=== PATIENT | male | born 1975 | race Caucasian/White ===

== ENCOUNTER 2024-06-25 15:06 | Emergency (ER) | payer MEDICAID, SELFPAY ==
--- NOTE | ~2024-06-25 | XR_ITS ---
EXAMINATION: XR FOREARM, RIGHT, 2 views CLINICAL INFORMATION: Small bump on forearm, swelling, redness, question osteomyelitis COMPARISON: None available. TECHNIQUE: AP and lateral views of the right forearm were obtained. FINDINGS: No evidence of acute fracture or malalignment. Ulnotrochlear osteophytes. Visualized elbow and wrist joint spaces are otherwise well preserved. No osseous cortical erosion, focal osteopenia, or periosteal reaction. Focal soft tissue swelling overlying the distal radial sided forearm XR/XR forearm RT 2V IMPRESSION: Focal distal forearm soft tissue swelling, without underlying osseous erosion or periosteal reaction to suggest osteomyelitis. Electronically signed by: Erwin David MD 06/25/2024 03:57 PM EDT
[2024-06-25 15:12] VITALS: BP 104/75; PULSE 80; RESP 19; TEMP 37.2; O2SAT 98; BMI 24.3
--- NOTE | 2024-06-25 15:13 | ED.GENADULT ---
HPI - General Adult General Chief complaint: Wound/Laceration Stated complaint: RT arm abscess Time Seen by Provider: 06/25/24 18:02 Source: patient, RN notes reviewed and old records reviewed Mode of arrival: ambulatory Limitations: no limitations History of Present Illness ED Provider: Adriana ARIAS narrative: 49-year-old male past medical history significant for diabetes presents for evaluation of an abscess to his right forearm. Patient reports that the abscess has been there for about 1 week. He was applying peroxide to it and soaking in warm water to attempt to treat at home himself He denies any fevers, chills. He admits to injecting substances into the right arm prior to the onset of this abscess He reports that it initially started as a small boil but has been growing and getting more red and painful His overall discomfort is 7/10 No other complaints or concerns at this time Related Data Previous Rx's ?Medication ?Instructions ?Recorded cephalexin 500 mg capsule 500 mg PO QID #40 caps 06/25/24 doxycycline hyclate 100 mg tablet 100 mg PO BID #20 tabs 06/25/24 Allergies Allergy/AdvReac Type Severity Reaction Status Date / Time cyclobenzaprine Allergy Unknown HIVES Verified 06/25/24 15:14 [From FLEXERIL] Review of Systems Constitutional: Constitutional: Denies body ache(s), Denies chills and Denies fever(s) ENT: Denies sore throat Cardiovascular: Cardiovascular: Denies chest pain and Denies dyspnea Respiratory: Respiratory: Denies cough and Denies dyspnea Gastrointestinal: Gastrointestinal: Denies abdominal pain, Denies nausea and Denies vomiting Musculoskeletal: Musculoskeletal: Denies arthralgias, Denies joint swelling and Denies limited range of motion Integumentary/Breasts: Skin/Breast: Reports erythema, Reports rash, Reports skin swelling and Reports sores PMFSH Social History Social History Smoked in Last 30 Days: Yes Use of substances other than those prescribed or required for medical reasons: Yes Advance Directives: No Advance Directives Information Provided: No Physical Exam ED Vital Signs: Vital Signs - 24 hr 06/25/24 15:12 06/25/24 18:00 06/25/24 19:06 Temperature 98.9 F 98.3 F 98.6 F Pulse Rate 80 65 81 Respiratory Rate 19 18 19 Blood Pressure 104/75 106/57 L 108/76 Pulse Oximetry 98 95 98 Oxygen Delivery Method Room Air Room Air 06/25/24 20:45 Temperature 98.0 F Pulse Rate 89 Respiratory Rate 16 Blood Pressure 106/81 Pulse Oximetry 97 Oxygen Delivery Method Room Air BMI result Body Mass Index 24.3 Const General: healthy appearing, comfortable, no acute distress, alert and awake Nutritional Appearance: well nourished Orientation/consciousness: patient oriented x3 HENMT Head: Yes normocephalic and Yes atraumatic Eyes Eyelids: Yes eyelids normal Conjunctivae: conjunctivae normal Sclerae: sclerae normal Corneas: corneas normal Pupils: Equal, round and reactive pupils present EOM: EOMs intact bilaterally Neck Neck: Yes full ROM Resp Effort & Inspection: normal respiratory effort, able to speak in complete sentences and not labored Skin Other: There is a large, approximately 8 cm area of erythema to the dorsal surface of the right forearm. There is a central about 4 cm area of fluctuance with tenderness to palpation. No active drainage at this time. No streaking lymphadenopathy. There is no involvement of the wrist or elbow General skin exam: elasticity normal Neuro General: patient oriented x3 Cranial nerves: Yes Equal, round and reactive pupils present and Yes Bilaterally intact EOM present Cognition (Neuro): normal cognition Extrem Other: Moving all extremities well without any obvious deformities Course Course Course Narrative: RME performed by Jovana Quiroz PA-C. Patient is a 49 year old assigned male at presenting to the emergency department with a right forearm abscess. Patient states over the last week he has had an abscess on his right forearm that has gotten significantly worse. Patient states he does have a history of IVDU. Detailed physical exam and review of systems are deferred to the primary mill roller. Labs and imaging ordered. Patient placed back in the waiting room pending room availability and results. Reevaluation(s) Reevaluation #1: Glucose down to 250, the patient is stable for discharge at this time Time: 21:44 Medications Administered Discontinued Medications Generic Name Dose Route Start Last Admin Trade Name Freq PRN Reason Stop Dose Admin Cephalexin HCl 500 mg 06/25/24 19:16 06/25/24 19:33 Cephalexin 500 Mg Capsule PO 06/25/24 19:17 500 mg ONCE ONE Administration Doxycycline Monohydrate 100 mg 06/25/24 19:16 06/25/24 19:33 Doxycycline Monohydrate 100 Mg Capsule PO 06/25/24 19:17 100 mg ONCE ONE Administration Sodium Chloride 1,000 mls @ 999 mls/hr 06/25/24 18:30 06/25/24 20:52 Ns IV 06/25/24 19:30 999 mls/hr .Q1H1M AYAN Administration Insulin Human Regular 5 unit 06/25/24 18:28 06/25/24 20:56 Insulin Regular, Human 100 Unit/Ml 10 Ml Vial IVPUSH 06/25/24 18:29 5 unit ONCE ONE Administration Lidocaine/Epinephrine 10 ml 06/25/24 18:29 06/25/24 21:03 Lidocaine Hcl 1%/Epi 1:100,000 10 Ml Vial INFILTRATI 06/25/24 18:30 10 ml ONCE ONE Administration Oxycodone HCl 10 mg 06/25/24 18:28 06/25/24 19:33 Oxycodone Hcl Immed Release 5 Mg Tablet PO 06/25/24 18:29 10 mg ONCE ONE Administration Procedures Abscess I/D Site: upper extremity (Right dorsal forearm) Side (if applicable): right Local Anesthetic: lidocaine 1% and bupivacaine 0.5% Amount of anesthesia used (mL): 10 Technique: incised with blade Amount of fluid expressed (mL): 20 Sent for culture/gram staining?: No Irrigation: Yes Packing used?: none Medical Decision Making Medical Decision Making [facility] Narrative: 49-year-old male presents for evaluation of abscess to his right forearm. The patient admits to injecting opiates, x-ray shows no evidence of foreign body, osteomyelitis or gas producing organisms. See procedure note for abscess drainage. Incision and drainage was performed by Radha Carmona under my direct supervision The patient is also hyperglycemic but there was no evidence of DKA, his anion gap is normal, his carbon dioxide level was normal. We will treat with IV fluids, insulin for this. The patient be discharged with cephalexin and doxycycline, he is not septic and does not require admission. Differential Diagnosis Differential Diagnoses: The differential diagnosis associated with the presentation includes Abscess Cellulitis Substance abuse Hyperglycemia DKA Admission/Observation Consideration of admission/observation: Escalation of care including admission/observation considered Consider admission due to cellulitis with abscess in addition to hyperglycemia Lab Data [facility] Lab Attestation statement: I reviewed the patient's lab results. Patient has no leukocytosis, no anemia. Normal platelet count. No significant electrolyte abnormalities. Glucose is elevated to 471 06/25/24 15:31 06/25/24 15:31 Labs: Lab Results 06/25/24 06/25/24 06/25/24 Range/Units 15:31 15:38 21:37 WBC 10.2 (4.8-10.8) X10*3/uL RBC 4.84 (4.60-5.80) X10*6/uL Hgb 14.6 (14.0-18.0) g/dl Hct 42.1 (42.0-52.0) % MCV 87.0 (80.0-98.0) fL MCH 30.2 (27.0-33.0) pg MCHC 34.7 (31.0-36.0) g/dl RDW 12.6 (11.0-16.0) % Plt Count 227 (160-400) X10*3/uL MPV 9.6 (9.4-12.4) fL Immature Gran % (Auto) 0.4 (0.0-0.4) % Neut % (Auto) 74.9 H (45-73) % Lymph % (Auto) 16.0 L (20-40) % [place] % (Auto) 8.0 (2-11) % Eos % (Auto) 0.3 (0-4) % Baso % (Auto) 0.4 (0-2) % Lymph # (Auto) 1.6 (1.2-4.9) X10*3/uL [place] # (Auto) 0.8 (0.1-1.2) X10*3/uL Eos # (Auto) 0.0 (0.0-0.4) X10*3/uL Baso # (Auto) 0.0 (0.0-0.2) X10*3/uL Abs Immat Gran (auto) 0.04 H (0.00-0.03) X10*3/uL Absolute Neuts (auto) 7.7 (2.0-8.3) x10*3/uL Absolute Nucleated RBC 0.000 (0.0-0.012) X10*3/uL Nucleated RBC % (auto) 0.0 (0.0-0.2) /100WBC ESR 16 H (0-15) MM/HR Sodium 135 (135-145) mmol/L Potassium 4.5 (3.3-5.1) mmol/L Chloride 102 (96-108) mmol/L Carbon Dioxide 24 (22-29) mmol/L Anion Gap 14 (12-20) BUN 6 L (9-16) mg/dL Creatinine 0.86 (0.5-1.4) mg/dL Estim Creat Clear Calc 102.7 Estimated GFR > 60 POC Glucose 250 H (60-115) mg/dL Random Glucose 471 H* (60-115) mg/dL Estimat Average Glucose 289 mg/dL Hemoglobin A1c % 11.7 H (<6.0) % Calcium 9.1 (8.4-10.2) mg/dL Total Bilirubin 0.4 (0.0-1.0) mg/dL AST 23 (5-37) U/L ALT 30 (0-40) U/L Alkaline Phosphatase 67 (39-117) U/L C-Reactive Protein 2.35 H (< or = 0.50) mg/dL Total Protein 7.5 (6.5-8.0) g/dL Albumin 3.6 (3.5-5.0) g/dL Beta-Hydroxybutyrate 0.09 (0.02-0.27) mmol/L Radiology Impression Discussion of test interpretation with radiology: I have reviewed the radiologist's reading. Radiologist Impression: XR/XR forearm RT 2V IMPRESSION: Focal distal forearm soft tissue swelling, without underlying osseous erosion or periosteal reaction to suggest osteomyelitis. Discharge Plan Discharge Clinical Impression: Abscess, Acute hyperglycemia Patient Disposition: Home, Self-Care Instructions: Diabetic Hyperglycemia (ED), Incision and Drainage (ED) Additional Instructions: You should continue warm compresses every 4 hours. Take both antibiotics as prescribed for the next 10 days Keep the area clean and dry Return for new or worsening symptoms, especially fever Your glucose was elevated to 471 today. Follow-up with your primary doctor regarding your high blood sugar Prescriptions: New cephalexin 500 mg capsule 500 mg PO QID Qty: 40 0RF doxycycline hyclate 100 mg tablet 100 mg PO BID Qty: 20 0RF Print Language: Armenian
[2024-06-25 15:37] LABS: MANUAL DIFF FLAG NO
[2024-06-25 15:39] LABS: Basophils Percent Auto 0.4 % (0-2); Eosinophils Percent Auto 0.3 % (0-4); Hematocrit 42.1 % (42.0-52.0); Hemoglobin 14.6 g/dl (14.0-18.0); Imm Gran Abs Auto 0.04 X10*3/uL (0.00-0.03); Imm Gran Pct Auto 0.4 % (0.0-0.4); Lymphocytes Absolute Auto 1.6 X10*3/uL (1.2-4.9); Mean Corpuscular HGB Conc 34.7 g/dl (31.0-36.0); Mean Corpuscular Hemoglobin 30.2 pg (27.0-33.0); Mean Platelet Volume 9.6 fL (9.4-12.4); Monocytes Absolute Auto 0.8 X10*3/uL (0.1-1.2); Neutrophils Absolute Auto 7.7 x10*3/uL (2.0-8.3); Neutrophils Percent Auto 74.9 % (45-73); Platelet Count 227 X10*3/uL (160-400); Red Blood Count 4.84 X10*6/uL (4.60-5.80); Red Cell Distribution Width 12.6 % (11.0-16.0); White Blood Count 10.2 X10*3/uL (4.8-10.8)
[2024-06-25 16:05] LABS: Alanine Aminotransferase 30 U/L (0-40); Albumin Level 3.6 g/dL (3.5-5.0); Alkaline Phosphatase 67 U/L (39-117); Anion Gap 14 (12-20); Aspartate Amino Transferase 23 U/L (5-37); Bilirubin Total 0.4 mg/dL (0.0-1.0); Blood Urea Nitrogen 6 mg/dL (9-16); C Reactive Protein 2.35 mg/dL (< or = 0.50); Calcium 9.1 mg/dL (8.4-10.2); Carbon Dioxide 24 mmol/L (22-29); Chloride 102 mmol/L (96-108); Creatinine Clr Calc Pharmacy 102.7; Estimated Glomerular Filt Rate > 60; Glucose Random 471 mg/dL (60-115); Potassium 4.5 mmol/L (3.3-5.1); Sodium 135 mmol/L (135-145); Total Protein 7.5 g/dL (6.5-8.0)
[2024-06-25 16:43] LABS: Erythrocyte Sedimentation Rate 16 MM/HR (0-15)
[2024-06-25 17:17] LABS: Beta-Hydroxybutyrate 0.09 mmol/L (0.02-0.27)
[2024-06-25 17:23] LABS: Estimated Average Glucose 289 mg/dL; Hemoglobin A1c % 11.7 % (<6.0)
[2024-06-25 18:00] VITALS: BP 106/57; PULSE 65; RESP 18; TEMP 36.8; O2SAT 95
[2024-06-25 19:06] VITALS: BP 108/76; PULSE 81; RESP 19; TEMP 37; O2SAT 98
[2024-06-25] MEDS: Doxycycline Monohydrate 100 MG CAPSULE PO (19:33)
[2024-06-25] MEDS: oxyCODONE HCl Immed Release 5 MG TABLET 10 MG PO (19:33)
[2024-06-25] MEDS: cephALEXin 500 MG CAPSULE PO (19:33)
--- NOTE | 2024-06-25 20:44 | PC.NURSE ---
pt previously a difficult stick with limited/poor acccess availability. RN was awaiting ICU assistance with placing and US guided IV. CUSTOM PROTECTION OFFICER just informed RN of successful IV Placement. IV medication to be administered
[2024-06-25 20:45] VITALS: BP 106/81; PULSE 89; RESP 16; TEMP 36.7; O2SAT 97
[2024-06-25] MEDS: 0.9 % Sodium Chloride 1,000 ML 999 ML IV (20:52)
[2024-06-25] MEDS: Insulin Regular, Human 100 UNIT/ML 10 ML VIAL IVPUSH (20:56)
[2024-06-25] MEDS: Lidocaine HCl 1%/Epi 1:100,000 10 ML VIAL INFILTRATI (21:03)
[2024-06-25 21:43] LABS: Glucose, Whole Blood 250 mg/dL (60-115)
[2024-06-26 00:02] VITALS: BP 110/58; PULSE 89; RESP 16; TEMP 36.9; O2SAT 97
== END 2024-06-25 22:22 | disposition home or self-care (01) ==
PROVIDERS: Physician Assistant Medical; Emergency Provider Emergency Medicine
DX: L02.413 Cutaneous abscess of right upper limb (principal); R73.9 Hyperglycemia, unspecified; Z79.899 Other long term (current) drug therapy
CPT/HCPCS: 10060; 36415; 73090; 80053; 82010; 82947; 83036; 85025; 85652; 86140; 96361; 96374; 99284

== ENCOUNTER 2025-07-14 21:09 | Inpatient (IN) | payer MEDICAID, SELFPAY ==
--- NOTE | ~2025-07-14 | CT_ITS ---
CLINICAL HISTORY: osteo? CT right femur with Comparison: None provided Findings: No acute fractures, erosions or aggressive periosteal reactions. No significant degenerative changes Diffuse subcutaneous edema along the mid and distal thigh. Small anterior subcutaneous ill-defined abscess measuring 1.1 x 7.9 cm on sagittal series 16, image 97. Possible skin defects noted along the anterolateral thigh series 11, image 204. No soft tissue gas. IMPRESSION: No evidence of osteomyelitis. Diffuse cellulitis with superficial abscess described. This document has been electronically signed by: Petr Rodriguez MD on 07/15/2025 00:50:22
--- NOTE | ~2025-07-14 | CT_ITS ---
CLINICAL HISTORY: osteo? CT pelvis with contrast Comparison: None provided Findings: Pelvic contents unremarkable. Normal appendix. The bones are intact. No erosions or aggressive periosteal reactions. Distended bladder. IMPRESSION: No acute findings. This document has been electronically signed by: Petr Rodriguez MD on 07/15/2025 00:40:58
[2025-07-14 21:33] VITALS: BP 129/77; PULSE 99; RESP 16; TEMP 36.8; O2SAT 95; BMI 18.7
--- NOTE | 2025-07-14 21:48 | PC.NURSE ---
JAZMINE Baldwin aware of HIGH POC
--- NOTE | 2025-07-14 22:26 | PC.NURSE ---
Rn to bedside to place an IV per request. Due to difficulty with access only a #22G was able to be placed to the right upper arm. DUANE to bedside for primary introductions and reports plan to place an US guided IV and obtain the 2nd set of cultures during that time.
[2025-07-14 22:28] LABS: MANUAL DIFF FLAG NO
[2025-07-14 22:29] LABS: Hematocrit 39.8 % (42.0-52.0); Hemoglobin 13.9 g/dl (14.0-18.0); Imm Gran Abs Auto 0.02 X10*3/uL (0.00-0.03); Imm Gran Pct Auto 0.3 % (0.0-0.4); Lymphocytes Absolute Auto 0.8 X10*3/uL (1.2-4.9); Mean Corpuscular HGB Conc 34.9 g/dl (31.0-36.0); Mean Corpuscular Hemoglobin 30.3 pg (27.0-33.0); Mean Corpuscular Volume 86.7 fL (80.0-98.0); NRBC Abs Auto 0.000 X10*3/uL (0.0-0.012); NRBC Pct Auto 0.0 /100WBC (0.0-0.2); Platelet Count 240 X10*3/uL (160-400); Red Blood Count 4.59 X10*6/uL (4.60-5.80); White Blood Count 6.2 X10*3/uL (4.8-10.8)
[2025-07-14 22:57] LABS: Glucose, Whole Blood > 600 mg/dL (60-115)
--- OUTSIDE RECORDS SUMMARY | 2025-07-14 22:59 | XMS_ITS | Encounter Summary ---
Author Organization [employer] Address [address] [facility] [address] [place] [address] Care Team Providers Care Plate Corrector Name Role Phone Elsy Mojica MD Primary Care Provider [phone] Reason for Visit * Reason Comments Med Change Request Encounter Details Date Type Department Care Team ([facility] st Contact Info) Description 02/04/2024 Refill [facility] MED & PEDS [address], [place] [phone] Elsy Mojica MD [address] [place], [place] [phone] Hyperglycemia due to diabetes mellitus (CMS/HCC) Social History Tobacco Use Types Packs/Day Years Used Date Smoking Tobacco: Every Day Cigarettes Smokeless Tobacco: Never Alcohol Use Standard Drinks/Week Comments Not Currently 0 (1 standard drink = 0.6 oz pur e alcohol) Sex and Gender Information Value Date Recorded Sex Assigned at Male 08/17/2022 10:21 AM EDT Legal Sex Male 10:21 AM EDT Gender Identity Male 08/17/2022 10:21 AM EDT Sexual Orientation Straight 08/17/2022 10 :21 AM EDT documented as of this encounter Plan of Treatment Not on file documented as of this encounter Visit Diagnoses Diagnosis Hyperglycemia due to diabetes mellitus (CMS/HCC) documented in this encounter Care Teams Plate Corrector Relationship Specialty Start Date End Date Elsy Mojica MD [address] [place] [address] PCP - General Family Medicine 02/04/24 documented as of this encounter
--- OUTSIDE RECORDS SUMMARY | 2025-07-14 22:59 | XMS_ITS | Clinical Summary ---
Author Organization [employer] Address [address] [facility] [address] [place] [address] Care Team Providers Care Senior Planner Name Role Phone Elsy Mojica MD Primary Care Provider Allergies No known active allergies Medications metFORMIN XR (Glucophage-XR ) 500 MG 24 hr tabletIndicati ons:Hyperglyce sudarshan due to diabetes mellitus ([facility]) TAKE 1 TABLET BY MOUTH EVERY DAY WITH BREAKFAST, IF TOLERATING AFTER 7 DAYS, INCREASE TO 1 TABLET TWICE DAILY WITH MEAL. DO NOT BREAK, CRUSH, DISSOLVE OR CHEW. 180 tablet 12/03/19 24 Active divalproex (Depakote ER) 500 MG 24 hr tablet Take 2 tablets (1,000 mg) by mouth at bedtime. Do not crush, chew, or split. 60 tablet 2 02/04/20 24 Active clonazePAM (KlonoPIN) 0.5 MG tablet Take 1 tablet (0.5 mg) by mouth 2 times daily. 10 tablet 02/04/20 24 Active Lancets miscIndication s:Hyperglycemi a due to diabetes mellitus ([facility]/HCC) Use to test blood sugar BID 200 each 11 02/04/20 24 Active Alcohol Swabs 70 % padsIndication s:Hyperglycemi a due to diabetes mellitus ([facility]) Use to test blood sugar BID 100 each 02/04/20 24 Active Blood Glucose Monitoring Suppl (FreeStyle [place] Lite) w/Device kitIndications :Hyperglycemia due to diabetes mellitus ([facility]) Use to test blood sugarBID 1 kit 02/04/20 24 Active insulin degludec (Tresiba FlexTouch) 100 UNIT/ML injectionIndic ations:Hypergl ycemia due to diabetes mellitus (CMS/HCC) Inject 20 Units under the skin at bedtime. 15 mL 2 02/04/20 24 Active Continuous Glucose Biodiesel Plant Manager (FreeStyle [place] 2 [place]) deviceIndicati ons:Hyperglyce sudarshan due to diabetes mellitus (CMS/HCC) SCAN SENSOR EVERY 8 HOURS 1 each 10/05/20 24 Active Dulaglutide 0.75 MG/0.5ML solution auto-injector Inject 0.75 mg under the skin 1 (one) time per week. 3 mL 1 12/13/19 25 Active Continuous Glucose Sensor (FreeStyle Mayo 2 Sensor) miscIndication s:Hyperglycemi a due to diabetes mellitus (CMS/HCC) Apply 1 sensor every 14 days 2 each 11 01/26/20 25 Active Dulaglutide (Trulicity) 0.75 MG/0.5ML solution auto-injector Inject 0.75 mg under the skin 1 (one) time per week. INJECT 0.75 MG UNDER THE SKIN 1 (ONE) TIME PER WEEK. 2 mL 2 02/08/20 25 Active hydrOXYzine pamoate (Vistaril) 25 MG capsule TAKE 1 CAPSULE BY MOUTH EVERY 8 HOURS IF NEEDED FOR ITCHING OR ANXIETY. 90 capsule 1 03/07/20 25 Active gabapentin (Neurontin) 600 MG tablet TAKE 1 TABLET BY MOUTH TWICE A DAY 60 tablet 2 06/19/20 25 Active glucose blood (FREESTYLE LITE) test stripIndicatio ns:Hyperglycem ia due to diabetes mellitus (CMS/HCC) USE TO TEST BLOOD SUGAR TWICE A DAY 100 strip 11 07/06/20 25 Active FREESTYLE LITE test stripIndicatio ns:Hyperglycem ia due to diabetes mellitus ([facility]) Use as instructed 100 each 12 01/23/20 23 025 Discontinued gabapentin (Neurontin) 600 MG tablet TAKE 1 TABLET BY MOUTH 2 TIMES DAILY 60 tablet 2 03/27/20 25 025 Discontinued Active Problems Problem Noted Date Diagnosed Date Routine adult health maintenance 01/28/2023 Hyperglycemia due to diabetes mellitus 3 Assessment & Plan (02/04/2024 3:45 PM EDT): Continue on current medications, and begin Trulicity. Discussed monitoring daily blood sugar levels. Ordered lab work for further investigation. F/u in two weeks on 02/24/2024. Encounters Date Type Department Care Team Description 07/05/2025 Refill [facility] MED & PEDS [address] [place] [address] Elsy Mojica MD Hyperglycemia due to diabetes mellitus ([facility]/HCC) 07/05/2025 Telephone [facility] MED [facility] PEDS [address] [place], [place] [phone] Elsy Mojica MD 06/16/2025 Refill [facility] [address] [place], [place] [phone] Elsy Mojica MD 05/28/2025 Telephone [facility] [address], [place] [phone] Elsy Mojica MD Prior Authorization from Last 3 Months Family History Medical History Relation Name Comments Stroke Father Stroke Mother Relation Name Status Comments Father Mother Social History Tobacco Use Types Packs/Day Years Used Date Smoking Tobacco: Every Day Cigarettes Smokeless Tobacco: Never Tobacco Cessation:Ready to Q uit: Not Asked; Counseling Given: Not Answered Alcohol Use Standard Drinks/Week Comments Not Currently 0 (1 standard drink = 0.6 oz pur e alcohol) Sex and Gender Information Value Date Recorded Sex Assigned at Male 08/17/2022 10:21 AM EDT Legal Sex Male 10:21 AM EDT Gender Identity Male 08/17/2022 10:21 AM EDT Sexual Orientation Straight 08/17/2022 10 :21 AM EDT Last Filed Vital Signs Vital Sign Reading Time Taken Comments Blood Pressure 108/76 02/04/2024 1:32 PM EDT Pulse 88 02/04/2024 1:32 PM EDT Temperature 36.9 C (98.4 F) 02/04/2024 1:32 PM EDT Respiratory Rate 20 02/04/2024 1:32 PM EDT Oxygen Saturation 98% 02/04/2024 1:32 PM EDT Inhaled Oxygen Concentration - - Weight 71.9 kg (158 lb 9.6 oz) 02/04/2024 1:32 P M EDT Height 177 cm (5' 9.69 ) 02/04/2024 1:32 PM EDT Body Mass Index 22.96 02/04/2024 1:32 PM EDT Plan of Treatment Health Maintenance Due Date Last Done Comments CT Colonography 1977 Colonoscopy 1977 Colorectal Cancer Screening 1977 Depression Screening 1977 FIT DNA/Cologuard 1977 FIT 1977 FOBT 1977 HIV Screening 1977 Lipid Panel 1977 SDOH Screening 1977 Sigmoidoscopy 1977 Disability Screening 1977 Diabetes: Foot Exam 1987 Eye Exam 1987 Alcohol/Substance Use Screening 1989 Family Planning (PISQ) 1992 Hepatitis C Screening 1995 DTaP/Tdap/Td Vaccines (1 - Tdap) 1996 Diabetes: Urine Protein Screening 1996 Hepatitis B Vaccines (1 of 3 - 19+ 3-dose series) 1996 Pneumococcal Vaccine: Pediatrics (0 to 5 Years) and At-Risk Patients (6 to 49) Years (1 of 2 - PCV) 1996 Diabetes: Hemoglobin A1C 05/05/2024 024, 01/22/2023 Tobacco Screening 02/03/2025 02/04/2024 COVID-19 Vaccine (1 - 2023-2 5 season) 2025 Influenza Vaccine (#1) 2025 Zoster Vaccines (1 of 2) 2027 RSV Patients and Patients Aged 60 years or older (1 - 1-dose 75+ series) 2052 HIB Vaccines Aged Out No longer eligi ble based on patient's age to complete this topic HPV Vaccines Aged Out No longer eligi ble based on patient's age to complete this topic Hepatitis A Vaccines Aged Out No long er eligible based on patient's age to complete this topic IPV Vaccines Aged Out No longer eligi ble based on patient's age to complete this topic Meningococcal B Vaccine Aged Out No l onger eligible based on patient's age to complete this topic Meningococcal Vaccine Aged Out No gemini rocio eligible based on patient's age to complete this topic RSV under 20 months Aged Out No longe r eligible based on patient's age to complete this topic Rotavirus Vaccines Aged Out No longer eligible based on patient's age to complete this topic Procedures Procedure Name Priority Date/Time Associated Diagnosis Comments LACTIC ACID Routine 07/14/2025 10:06 PM EDT CBC WITH AUTO DIFFERENTIAL Routine 07/14/2025 10:06 PM EDT GLUCOSE, WHOLE BLOOD Routine 07/14/2025 9:37 PM EDT POCT GLYCATED HEMOGLOBIN, TOTAL Routine 02/04/2024 2:13 PM EDT Hyperglycemia due to diabetes mellitus ([facility]) from Last 3 Months or Most Recently Relevant to Health Maintenance Results * (ABNORMAL) CBC auto differential (07/14/2025 10:06 PM EDT) Pathologist [facility] White Blood Count 6.2 4.8 - 10.8 X10*3/uL [facility] Red Blood Count 4.59(L) 4.60 - 5.80 X10*6/uL [facility] Hemoglobin 13.9(L) 14.0 - 18.0 g/dl [facility] Hematocrit 39.8(L) 42.0 - 52.0 % [facility] Mean Corpuscular Volume 86.7 80.0 - 98.0 fL [facility] Mean Corpuscular Hemoglobin 30.3 27.0 - 33.0 pg [facility] Mean Corpuscular HGB Conc 34.9 31.0 - 36.0 g/dl [facility] Red Cell Distribution Width 13.5 11.0 - 16.0 % [facility] Platelet Count 240 160 - 400 X10*3/uL [facility] Mean Platelet Volume 10.0 9.4 - 12.4 fL [facility] Neutrophils Percent Auto 80.3(H) 45 - 73 % [facility] Imm Gran Pct Auto 0.3 0.0 - 0.4 % [facility] Lymphocytes Percent Auto 13.3(L) 20 - 40 % [facility] Monocytes Percent Auto 5.3 2 - 11 % [facility] Eosinophils Percent Auto 0.2 0 - 4 % [facility] Basophils Percent Auto 0.6 0 - 2 % [facility] NRBC Pct Auto 0.0 0.0 - 0.2 /100WBC [facility] Neutrophils Absolute Auto 5.0 2.0 - 8.3 x10*3/uL [facility] Imm Gran Abs Auto 0.02 0.00 - 0.03 X10*3/uL [facility] Lymphocytes Absolute Auto 0.8(L) 1.2 - 4.9 X10*3/uL [facility] Monocytes Absolute Auto 0.3 0.1 - 1.2 X10*3/uL [facility] Eosinophils Absolute Auto 0.0 0.0 - 0.4 X10*3/uL [facility] Basophils Absolute Auto 0.0 0.0 - 0.2 X10*3/uL [facility] NRBC Abs Auto 0.000 0.0 - 0.012 X10*3/uL [facility] 07/14/2025 10:0 6 PM EDT 07/14/2025 10:26 PM EDT Generic External Data Provider LAB BLOOD ORDERAB LES Final Result Performing Organization Address City/[facility]/ZIP Co de Phone Number [facility] [address] [place] [phone] * (ABNORMAL) Lactic Acid (07/14/2025 10:06 PM EDT) [facility] Lactic Acid 4.4(HH) 0.5 - 2.0 mmol/L [facility] Comment:Critical value for t est(s): LACTA Results called to isaiah back by: NIKIA Person calling: VYASRID Date: [id number] 07/14/2025 10:0 6 PM EDT 07/14/2025 10:13 PM EDT Generic External Data Provider LAB BLOOD ORDERAB LES Final Result Performing Organization Address City/[facility] Co de Phone Number [facility] [address] [place] [phone] * (ABNORMAL) Glucose, Whole Blood (07/14/2025 9:37 PM EDT) Glucose, Whole Blood >600(HH) 60 - 115 mg/dL [facility] Comment:METER #: [id number] 07/14/2025 9:37 PM EDT 07/14/2025 10:56 PM EDT us Generic External Data Provider LAB BLOOD ORDERAB LES Final Result [facility] [address] [place] [phone] * (ABNORMAL) POCT HGB A1C (02/04/2024 2:13 PM EDT) Hemoglobin A1C 11.9(A) 4.0 - 6.0 % [employer] Lot # [id number] Lot# Expiration Date Blood 02/04/2024 2:13 PM EDT us Elsy Mojica MD POINT OF CARE TEST ENTER/EDIT ORDERABLES Final Result from Last 3 Months or Most Recently Relevant to Health Maintenance Insurance [facility] C3 HSN FULL Care Teams Senior Planner Relationship Specialty Start Date End Date Elsy Mojica MD [address] [place] [phone] PCP - General Family Medicine 02/04/24
--- OUTSIDE RECORDS SUMMARY | 2025-07-14 22:59 | XMS_ITS | Encounter Summary ---
Author Organization [employer] Address [address] [facility] 7t [place] [address] Care Team Providers Care Network Contract Manager Name Role Phone Elsy Mojica MD Primary Care Provider [phone] Encounter Details Date Type Department Care Team (Late st Contact Info) Description 12/11/2024 Orders Only [facility] MEDICINE [address] [place] [address] Lisa Redmond MD [address] [place], [place] [phone] Social History Tobacco Use Types Packs/Day Years [...] on file documented as of this encounter Procedures Procedure Name Priority Date/Time Associated Diagnosis Comments CBC WITH AUTO DIFFERENTIAL Routine 07/14/2025 10:06 PM EDT LACTIC ACID Routine 07/14/2025 10:06 PM EDT GLUCOSE, WHOLE BLOOD Routine 07/14/2025 9:37 PM EDT documented in this encounter Results * (ABNORMAL) Lactic Acid (07/14/2025 10:06 PM EDT) Lactic Acid 4.4(HH) 0.5 - 2.0 mmol/L [facility] Comment:Critical value for t est(s): LACTA Results called to isaiah back by: NIKIA Person calling: VYASRID Date: [id number] 07/14/2025 10:0 6 PM EDT 07/14/2025 10:13 PM EDT us Generic External Data Provider LAB BLOOD ORDERAB LES Final Result [facility] [address] [place] [address] [phone] * (ABNORMAL) CBC auto differential (07/14/2025 10:06 PM EDT) White Blood Count 6.2 4.8 - 10.8 X10*3/uL [facility] Red Blood Count 4.59(L) 4.60 - 5.80 X10*6/uL [facility] Hemoglobin 13.9(L) 14.0 - 18.0 g/dl [facility] Hematocrit 39.8(L) 42.0 - 52.0 % [facility] Mean Corpuscular Volume 86.7 80.0 - 98.0 fL [facility] Mean Corpuscular Hemoglobin 30.3 27.0 - 33.0 pg [facility] Mean Corpuscular HGB Conc 34.9 31.0 - 36.0 g/dl [facility] Red Cell Distribution Width 13.5 11.0 - 16.0 % [facility] Platelet Count 240 160 - 400 X10*3/uL [facility] Mean Platelet Volume 10.0 9.4 - 12.4 fL [facility] Neutrophils Percent Auto 80.3(H) 45 - 73 % [facility] Imm Gran Pct Auto 0.3 0.0 - 0.4 % [facility] Lymphocytes Percent Auto 13.3(L) 20 - 40 % [facility] Monocytes Percent Auto 5.3 2 - 11 % [facility] Eosinophils Percent Auto 0.2 0 - 4 % [facility] Basophils Percent Auto 0.6 0 - 2 % [facility] NRBC Pct Auto 0.0 0.0 - 0.2 /100WBC [facility] Neutrophils Absolute Auto 5.0 2.0 - 8.3 x10*3/uL [facility] Imm Gran Abs Auto 0.02 0.00 - 0.03 X10*3/uL [facility] Lymphocytes Absolute Auto 0.8(L) 1.2 - 4.9 X10*3/uL [facility] Monocytes Absolute Auto 0.3 0.1 - 1.2 X10*3/uL [facility] Eosinophils Absolute Auto 0.0 0.0 - 0.4 X10*3/uL [facility] Basophils Absolute Auto 0.0 0.0 - 0.2 X10*3/uL [facility] NRBC Abs Auto 0.000 0.0 - 0.012 X10*3/uL [facility] 07/14/2025 10:0 6 PM EDT 07/14/2025 10:26 PM EDT us Generic External Data Provider LAB BLOOD ORDERAB LES Final Result Performing Organization Address City/[facility]/ZIP Co de Phone Number [facility] [address] [place] [address] [phone] * (ABNORMAL) Glucose, Whole Blood (07/14/2025 9:37 PM EDT) Glucose, Whole Blood >600() 60 - 115 mg/dL [facility] Comment:METER #: [id number] 07/14/2025 9:37 PM EDT 07/14/2025 10:56 PM EDT us Generic External Data Provider LAB BLOOD ORDERAB LES Final Result Performing Organization Address [facility]/ZIP Co de Phone Number [facility] [address] [place] [address] [phone] documented in this encounter Visit Diagnoses Not on filedocumented in this encounter Care Teams Network Contract Manager Relationship Specialty Start Date End Date Elsy Mojica MD [address] [place] [address] PCP - General Family Medicine 02/04/24 documented as of this encounter
--- OUTSIDE RECORDS SUMMARY | 2025-07-14 22:59 | XMS_ITS | Encounter Summary ---
Author Organization [employer] Address [address] [facility] 7t [place] [address] Care Team Providers Care Seeing Eye Dog Teacher Name Role Phone Elsy Mojica MD Primary Care Provider [phone] Reason for Visit * Reason Comments Med Refill Encounter Details Date Type Department Care Team (Late st Contact Info) Description 04/24/2024 Refill [facility] MED & PEDS [address] [place], [place] [phone] Elsy Mojica MD [address] [place], [place] [phone] Social History Tobacco Use Types Packs/Day Years [...] documented as of this encounter Visit Diagnoses Not on filedocumented in this encounter Care Teams Seeing Eye Dog Teacher Relationship Specialty Start Date End Date Elsy Mojica MD [address] [place] [address] PCP - General Family Medicine 02/04/24 documented as of this encounter
--- OUTSIDE RECORDS SUMMARY | 2025-07-14 22:59 | XMS_ITS | Encounter Summary ---
Author Organization [employer] Address [address] [facility] 7t [place] [address] Care Team Providers Care Ski Molder Name Role Phone Elsy Mojica MD Primary Care Provider [phone] Reason for Visit * Reason Onset Date Comments Med Refill 12/08/2023 Encounter Details Date Type Department Care Team (Late st Contact Info) Description 12/08/2023 Telephone [facility] MEDICINE [address] [place], [place] [phone] Elsy Mojica MD [address] [place], [place] [phone] Med Refill Social History Tobacco Use Types Packs/Day Years [...] AM EDT documented as of this encounter Miscellaneous Notes * Telephone Encounter - Belkis Gates LPN - 12/08/2023 1:42 PM EST Tresiba and metformin were sent to [facility] on 12/03/23 and test strips should still have refills. * Telephone Encounter - Jannet Bernstein - 12/08/2023 12:42 PM EST TC from pt requesting medication refill. Medications needing refill : FREESTYLE LITE test strip Tresiba FlexTouch 100 UNIT/ML injection metFORMIN XR (Glucophage-XR) 500 MG 24 hr tablet To be sent to: [facility]/pharmacy #[id number] - [place] - [address] [place] [address] documented in this encounter Plan of Treatment Not on file documented as of this encounter Visit Diagnoses Not on filedocumented in this encounter Care Teams Ski Molder Relationship Specialty Start Date End Date Elsy Mojica MD [address] [place] [phone] PCP - General Family Medicine 02/04/24 documented as of this encounter
--- OUTSIDE RECORDS SUMMARY | 2025-07-14 22:59 | XMS_ITS | Encounter Summary ---
Author Organization [employer] Address [address] [facility] 7t [place] [address] Care Team Providers Care Oracle Etl Developer Name Role Phone Elsy Mojica MD Primary Care Provider [phone] Reason for Visit * Reason Comments Med Refill Encounter Details Date Type Department Care Team (Late st Contact Info) Description 01/25/2025 Refill [facility] CHC MED & PEDS [address] [place], [place] [phone] Elsy Mojica MD [address] [place], [place] [phone] Hyperglycemia due to diabetes mellitus (CMS/HCC) Social [...] (CMS/HCC) documented in this encounter Care Teams Oracle Etl Developer Relationship Specialty Start Date End Date Elsy Mojica MD [address] [place] [address] PCP - General Family Medicine 02/04/24 documented as of this encounter
--- OUTSIDE RECORDS SUMMARY | 2025-07-14 22:59 | XMS_ITS | Encounter Summary ---
Author Organization [employer] Address [address] [facility] 7t [place] [address] Care Team Providers Care Hot Baller Name Role Phone Elsy Mojica MD Primary Care Provider [phone] Reason for Visit * Reason Onset Date Comments PA 10/31/2024 Encounter Details Date Type Department Care Team ([facility] st Contact Info) Description 10/31/2024 Telephone [facility] MED & PEDS [address] [place], [place] [phone] Elsy Mojica MD [address] [place], [place] [phone] PA Social History Tobacco Use Types Packs/Day Years [...] encounter Miscellaneous Notes * Telephone Encounter - Pao Schwartz - 10/31/2024 10:30 AM EST Tc from pt calling to inform a PA is needed for medication Continuous Glucose Sensor (FreeStyle Mayo 2 Sensor) misc . documented in this encounter Plan of Treatment Not on file documented as of this encounter Visit Diagnoses Not on filedocumented in this encounter Care Teams Hot Baller Relationship Specialty Start Date End Date Elsy Mojica MD [address] [place] [phone] PCP - General Family Medicine 02/04/24 documented as of this encounter
--- OUTSIDE RECORDS SUMMARY | 2025-07-14 22:59 | XMS_ITS | Encounter Summary ---
Author Organization [employer] Address [address] [facility] 7t [place] [address] Care Team Providers Care Psych Arnp Name Role Phone Elsy Mojica MD Primary Care Provider [phone] Encounter Details Date Type Department Care Team (Late st Contact Info) Description 07/05/2025 Telephone [facility]S [address] [place], [place] [phone] Elsy Mojica MD [address] [place], [place] [phone] Social History Tobacco Use Types Packs/Day Years [...] on filedocumented in this encounter Care Teams Psych Arnp Relationship Specialty Start Date End Date Elsy Mojica MD [address] [place] [id number] PCP - General Family Medicine 02/04/24 documented as of this encounter
--- OUTSIDE RECORDS SUMMARY | 2025-07-14 22:59 | XMS_ITS | Encounter Summary ---
Author Organization [employer] Address [address] [facility] 7t [place] [address] Care Team Providers Care Tube Tester Name Role Phone Elsy Mojica MD Primary Care Provider [phone] Reason for Visit * Reason Comments Med Refill Encounter Details Date Type Department Care Team (Late st Contact Info) Description 10/04/2024 Refill [facility] CHC MED & PEDS [address] [place], [place] [phone] Elsy Mojica MD [address] [place], [place] [phone] Hyperglycemia due to diabetes mellitus (CMS/HCC) Social [...] (CMS/HCC) documented in this encounter Care Teams Tube Tester Relationship Specialty Start Date End Date Elsy Mojica MD [address] [place] [address] PCP - General Family Medicine 02/04/24 documented as of this encounter
--- OUTSIDE RECORDS SUMMARY | 2025-07-14 22:59 | XMS_ITS | Encounter Summary ---
Author Organization [employer] Address [address] [facility] 7t [place] [address] Care Team Providers Care Facsimile Operator Name Role Phone Elsy Mojica MD Primary Care Provider [phone] Reason for Visit * Reason Comments Med Refill Encounter Details Date Type Department Care Team (Late st Contact Info) Description 12/26/2024 Refill [facility] MEDICINE [address] [place] [address] Elsy Mojica MD [address] [place], [place] [phone] Social History Tobacco Use Types Packs/Day Years [...] on filedocumented in this encounter Care Teams Facsimile Operator Relationship Specialty Start Date End Date Elsy Mojica MD [address] [place] [address] PCP - General Family Medicine 02/04/24 documented as of this encounter
[2025-07-14 23:00] LABS: Alanine Aminotransferase 62 U/L (0-40); Albumin Level 3.5 g/dL (3.5-5.0); Alkaline Phosphatase 109 U/L (39-117); Anion Gap 15 (12-20); Aspartate Amino Transferase 51 U/L (5-37); Blood Urea Nitrogen 14 mg/dL (9-16); Calcium 8.7 mg/dL (8.4-10.2); Carbon Dioxide 25 mmol/L (22-29); Chloride 93 mmol/L (96-108); Creatinine Clr Calc Pharmacy 79.3; Estimated Glomerular Filt Rate > 60; Magnesium 1.7 mg/dL (1.6-2.6); Potassium 4.3 mmol/L (3.3-5.1); Sodium 129 mmol/L (135-145); Total Protein 7.2 g/dL (6.5-8.0)
[2025-07-14] MEDS: 0.9 % Sodium Chloride 1,677 ML 1677 ML IV (23:00)
[2025-07-14] MEDS: iohexoL 350 MG/ML 100 ML INFUS..BTL IV (23:49)
[2025-07-15] VITALS (8 sets, daily range): BP systolic 103–114; BP diastolic 65–76; PULSE 53–72; RESP 12–18; TEMP 36–36.8; O2SAT 95–98; BMI 19.1
[2025-07-15 00:13] LABS: Reflex Lactate? Lactic Acid Added
[2025-07-15 00:37] LABS: Glucose, Whole Blood > 600 mg/dL (60-115)
[2025-07-15 00:56] LABS: ~Lactic Acid-LAB USE ONLY 3.7 mmol/L (0.5-2.0)
--- NOTE | 2025-07-15 01:08 | ED.GENADULT ---
HPI - General Adult General Chief complaint: General Medical Stated complaint: abcess on chest, high bs,left hand unable to move Time Seen by Provider: 07/14/25 21:46 Source: patient Limitations: no limitations History of Present Illness ED Provider: Jennifer Ro PA-C HPI narrative: 50-year-old male with a history of IV drug abuse, poorly controlled diabetes, presents with multiple complaints. Patient states he has had an abscess over the right thigh for several weeks. It has since opened and drained, he is developing new swellings within the same location. Denies fever. Patient also states that his blood sugar has been poorly controlled, he admits he has been not adherent with the his anti glycemic medications. The patient is not prescribed insulin, he states he is supposed to be taking metformin. Related Data Previous Rx's ?Medication ?Instructions ?Recorded cephalexin 500 mg capsule 500 mg PO QID #40 caps 06/25/24 doxycycline hyclate 100 mg tablet 100 mg PO BID #20 tabs 06/25/24 Allergies Allergy/AdvReac Type Severity Reaction Status Date / Time cyclobenzaprine (From Allergy Unknown HIVES Verified 07/14/25 21:35 FLEXERIL) PMFSH Social History Social History Smoked in Last 30 Days: Yes Use of substances other than those prescribed or required for medical reasons: No Advance Directives: No Advance Directives Information Provided: No Physical Exam ED Vital Signs: Vital Signs - 24 hr 07/14/25 21:33 07/15/25 00:28 07/15/25 01:14 Temperature 98.2 F 98.1 F Pulse Rate 99 72 66 Respiratory Rate 16 12 12 Blood Pressure 129/77 103/67 107/71 Pulse Oximetry 95 98 96 Oxygen Delivery Method Room Air Room Air Room Air 07/15/25 01:21 Temperature Pulse Rate 65 Respiratory Rate 14 Blood Pressure 103/72 Pulse Oximetry 97 Oxygen Delivery Method Room Air BMI result Body Mass Index 18.7 Extrem Other: Course Reevaluation(s) Reevaluation #1: At 22:49 on July 14 a sepsis focused exam was performed. Blood cultures collected, lactic returning and is elevated greater than 4, weight based IV fluid therapy was already ordered, starting vanco and Zosyn. Time: 22:49 Medications Administered Discontinued Medications Generic Name Dose Route Start Last Admin Trade Name Freq PRN Reason Stop Dose Admin Sodium Chloride 1,677 mls @ 1,677 mls/hr 07/14/25 22:49 07/15/25 01:10 Ns 30 ml/kg infuse over 1 hr (1677 ml) 07/14/25 23:48 Infused IV Infusion .Q1H STA Vancomycin HCl 1,500 mg/ 500 mls @ 333.333 mls/hr 07/14/25 22:49 07/15/25 01:20 Sodium Chloride IV 07/15/25 00:18 Infused ONCE ONE Infusion Piperacillin Sod/Tazobactam 50 mls @ 100 mls/hr 07/14/25 22:49 07/15/25 00:03 Sod 3.375 gm/ Sodium Chloride IV 07/14/25 23:18 Infused ONCE ONE Infusion Insulin Human Regular 5 unit 07/15/25 00:54 07/15/25 01:20 Insulin Regular, Human 100 Unit/Ml 10 Ml Vial IVPUSH 07/15/25 00:55 5 unit ONCE ONE Administration Iohexol 100 ml 07/14/25 23:41 07/14/25 23:49 Iohexol 350 Mg/Ml 100 Ml Infus..Btl IV 07/14/25 23:42 100 ml ONCE ONE Administration Ketamine HCl 20 mg 07/15/25 01:44 07/15/25 01:59 Ketamine Hcl/Ns 50 Mg/5 Ml Syringe IVPUSH 07/15/25 01:45 20 mg ONCE ONE Administration Lidocaine/Epinephrine 10 ml 07/15/25 01:12 07/15/25 01:53 Lidocaine Hcl 1%/Epi 1:100,000 10 Ml Vial INFILTRATI 07/15/25 01:13 Not Given ONCE ONE Lidocaine/Epinephrine 10 ml 07/15/25 01:12 07/15/25 01:53 Lidocaine Hcl 1%/Epi 1:100,000 10 Ml Vial INFILTRATI 07/15/25 01:13 Not Given ONCE ONE Procedures Procedure Narrative Procedure Narrative: Ultrasound-guided IV 20 gauge 1-3/4 inch IV placed in left upper extremity. Adequate blood return, flushes well secured with Tegaderm Abscess I/D Site: lower extremity Side (if applicable): right Sedation/analgesia: other (Ketamine) Local Anesthetic: lidocaine 1% and with epi Amount of anesthesia used (mL): 3 Technique: incised with blade and ultrasound guided Amount of fluid expressed (mL): 5 Sent for culture/gram staining?: No Irrigation: No Packing used?: iodoform Medical Decision Making Medical Decision Making MDM Narrative: 50-year-old male with a history of IV drug abuse, poorly controlled diabetes, presents with multiple complaints. Patient states he has had an abscess over the right thigh for several weeks. It has since opened and drained, he is developing new swellings within the same location. Denies fever. Patient also states that his blood sugar has been poorly controlled, he admits he has been not adherent with the his anti glycemic medications. The patient is not prescribed insulin, he states he is supposed to be taking metformin. I have considered the following differential diagnoses: HHS, DKA, cellulitis, purulent cellulitis, abscess, osteomyelitis Plan: In regard to the hyperglycemia, the patient admits to being not adherent with the his medications, in addition to screening labs we will be adding on a beta hydroxy. We will start aggressive IV fluid resuscitation. The patient also meets sepsis criteria. He is tachycardic, his lactic has returned at 4, we will be starting vanco and Zosyn, and weight based IV fluids. Obtaining imaging of the pelvis and femur to be sure there was no osteomyelitis. There was a drainable fluctuant collection of the right thigh that we will require I and D at bedside. We will premedicate with the ketamine prior to I and D. I have independently reviewed the following tests: Labs: No overall leukocytosis, left shift noted, not anemic, ESR 16, hypernatremic, sugar 905, no gap, beta hydroxy0.09, lactic 4.4, repeat lactic 3.7........ Giving 5 units regular insulin IV push CT right femur: Findings: No acute fractures, erosions or aggressive periosteal reactions. No significant degenerative changes Diffuse subcutaneous edema along the mid and distal thigh. Small anterior subcutaneous ill-defined abscess measuring 1.1 x 7.9 cm on sagittal series 16, image 97. Possible skin defects noted along the anterolateral thigh series 11, image 204. No soft tissue gas. IMPRESSION: No evidence of osteomyelitis. Diffuse cellulitis with superficial abscess described. CT pelvis:Findings: Pelvic contents unremarkable. Normal appendix. The bones are intact. No erosions or aggressive periosteal reactions. Distended bladder. IMPRESSION: No acute findings. Differential Diagnosis Differential Diagnoses: The differential diagnosis associated with the presentation includes See medical decision-making Admission/Observation Consideration of admission/observation: Escalation of care including admission/observation considered Should be admitted Consult Healthcare Provider Management of the patient was discussed with: Hospitalist Lab Data MDM Lab Attestation statement: I reviewed the patient's lab results. 07/14/25 22:06 07/14/25 22:06 Labs: Lab Results 07/14/25 07/14/25 07/15/25 Range/Units 21:37 22:06 00:27 WBC 6.2 (4.8-10.8) X10*3/uL RBC 4.59 L (4.60-5.80) X10*6/uL Hgb 13.9 L (14.0-18.0) g/dl Hct 39.8 L (42.0-52.0) % MCV 86.7 (80.0-98.0) fL MCH 30.3 (27.0-33.0) pg MCHC 34.9 (31.0-36.0) g/dl RDW 13.5 (11.0-16.0) % Plt Count 240 (160-400) X10*3/uL MPV 10.0 (9.4-12.4) fL Immature Gran % (Auto) 0.3 (0.0-0.4) % Neut % (Auto) 80.3 H (45-73) % Lymph % (Auto) 13.3 L (20-40) % Bartow % (Auto) 5.3 (2-11) % Eos % (Auto) 0.2 (0-4) % Baso % (Auto) 0.6 (0-2) % Lymph # (Auto) 0.8 L (1.2-4.9) X10*3/uL [place] # (Auto) 0.3 (0.1-1.2) X10*3/uL Eos # (Auto) 0.0 (0.0-0.4) X10*3/uL Baso # (Auto) 0.0 (0.0-0.2) X10*3/uL Abs Immat Gran (auto) 0.02 (0.00-0.03) X10*3/uL Absolute Neuts (auto) 5.0 (2.0-8.3) x10*3/uL Absolute Nucleated RBC 0.000 (0.0-0.012) X10*3/uL Nucleated RBC % (auto) 0.0 (0.0-0.2) /100WBC Sodium 129 L (135-145) mmol/L Potassium 4.3 (3.3-5.1) mmol/L Chloride 93 L (96-108) mmol/L Carbon Dioxide 25 (22-29) mmol/L Anion Gap 15 (12-20) BUN 14 (9-16) mg/dL Creatinine 0.90 (0.5-1.4) mg/dL Estim Creat Clear Calc 79.3 Estimated GFR > 60 POC Glucose > 600 H* (60-115) mg/dL Random Glucose 905 H* (60-115) mg/dL Lactic Acid 4.4 H* (0.5-2.0) mmol/L Lactic Acid F/U @ 2Hr 3.7 H* (0.5-2.0) mmol/L Lactic Acid F/U @ 4Hr (0.5-2.0) mmol/L Calcium 8.7 (8.4-10.2) mg/dL Magnesium 1.7 (1.6-2.6) mg/dL Total Bilirubin 0.3 (0.0-1.0) mg/dL AST 51 H (5-37) U/L ALT 62 H (0-40) U/L Alkaline Phosphatase 109 (39-117) U/L Total Protein 7.2 (6.5-8.0) g/dL Albumin 3.5 (3.5-5.0) g/dL Beta-Hydroxybutyrate 0.09 (0.02-0.27) mmol/L 07/15/25 07/15/25 07/15/25 Range/Units 00:33 02:34 03:34 WBC (4.8-10.8) X10*3/uL RBC (4.60-5.80) X10*6/uL Hgb (14.0-18.0) g/dl Hct (42.0-52.0) % MCV (80.0-98.0) fL MCH (27.0-33.0) pg MCHC (31.0-36.0) g/dl RDW (11.0-16.0) % Plt Count (160-400) X10*3/uL MPV (9.4-12.4) fL Immature Gran % (Auto) (0.0-0.4) % Neut % (Auto) (45-73) % Lymph % (Auto) (20-40) % Bartow % (Auto) (2-11) % Eos % (Auto) (0-4) % Baso % (Auto) (0-2) % Lymph # (Auto) (1.2-4.9) X10*3/uL [place] # (Auto) (0.1-1.2) X10*3/uL Eos # (Auto) (0.0-0.4) X10*3/uL Baso # (Auto) (0.0-0.2) X10*3/uL Abs Immat Gran (auto) (0.00-0.03) X10*3/uL Absolute Neuts (auto) (2.0-8.3) x10*3/uL Absolute Nucleated RBC (0.0-0.012) X10*3/uL Nucleated RBC % (auto) (0.0-0.2) /100WBC Sodium (135-145) mmol/L Potassium (3.3-5.1) mmol/L Chloride (96-108) mmol/L Carbon Dioxide (22-29) mmol/L Anion Gap (12-20) BUN (9-16) mg/dL Creatinine (0.5-1.4) mg/dL Estim Creat Clear Calc Estimated GFR POC Glucose > 600 H* 435 H* (60-115) mg/dL Random Glucose (60-115) mg/dL Lactic Acid (0.5-2.0) mmol/L Lactic Acid F/U @ 2Hr (0.5-2.0) mmol/L Lactic Acid F/U @ 4Hr 1.7 (0.5-2.0) mmol/L Calcium (8.4-10.2) mg/dL Magnesium (1.6-2.6) mg/dL Total Bilirubin (0.0-1.0) mg/dL AST (5-37) U/L ALT (0-40) U/L Alkaline Phosphatase (39-117) U/L Total Protein (6.5-8.0) g/dL Albumin (3.5-5.0) g/dL Beta-Hydroxybutyrate (0.02-0.27) mmol/L Radiology Impression Discussion of test interpretation with radiology: I have reviewed the radiologist's reading. Critical Care Time Critical Care Time Critical Care Time: Yes Total Critical Care Time: 35 Attestation: I Jennifer Ro PA-C have personally performed 35 minutes of critical care time not including lines and procedures; sepsis criteria, need for IV antibiotic therapy, hyperglycemia, need for IV insulin, need for hospital admission Discharge Plan Discharge Clinical Impression: Cellulitis and abscess of right leg, Cellulitis of buttock, left, Hyperglycemia Patient Disposition: Admitted As Inpatient Print Language: Angolan
[2025-07-15] MEDS: Ketamine HCl/NS 50 MG/5 ML SYRINGE 20 MG IVPUSH (01:59)
[2025-07-15 02:31] LABS: Reflex Lactate? 2 Y
[2025-07-15 02:38] LABS: Glucose, Whole Blood 435 mg/dL (60-115)
[2025-07-15 03:52] LABS: ~Lactic Acid-LAB USE ONLY 1.7 mmol/L (0.5-2.0)
[2025-07-15 04:30] LABS: Glucose, Whole Blood 424 mg/dL (60-115)
--- NOTE | 2025-07-15 05:39 | PM.IMHP ---
History of Present Illness Date of Service: 07/15/25 Chief Complaint: thigh redness 50-year-old male with a past medical history of IV drug abuse, diabetes-medication noncompliance; presented to the hospital today with a chief complaint of right thigh pain redness and swelling. Patient mentioned about few days ago had small abscess of the thigh which popped; later he started to have swelling and redness which gradually increasing in size causing pain and limiting ambulation. Denies any fevers. Denies any chest pain or palpitations. Denies any nausea vomiting or diarrhea. Denies any urinary symptoms. Reports he has known history of diabetes but has not been not taking his medications as suggested. Review of all other systems is negative except mentioned above ER course: Per ER team, patient noted to have right thigh erythema, tenderness, small open wound without any discharge; CT scan showed superficial cellulitis with small abscess. Given IV vancomycin and Zosyn. PMFSH Social History Smoked in Last 30 Days: Yes Use of substances other than those prescribed or required for medical reasons: No Advance Directives: No Advance Directives Information Provided: No Meds Allergies Allergy/AdvReac Type Severity Reaction Status Date / Time cyclobenzaprine (From Allergy Unknown HIVES Verified 07/14/25 21:35 FLEXERIL) Active Medications: Current Medications Acetaminophen (Acetaminophen 325 Mg Tablet) 650 mg PO Q6H PRN PRN Reason: Pain, Mild 1-3,fever,headache Calcium Carbonate (Calcium Carbonate 750 Mg Tab.Chew) 750 mg PO Q4H PRN PRN Reason: Heartburn Dextrose (Dextrose 50 % 25 Gm/50 Ml Syringe) 25 gm IVPUSH Q15M PRN; Protocol PRN Reason: per Hypoglycemia Standing Ord. Enoxaparin Sodium (Enoxaparin Sodium 40 Mg/0.4 Ml Syringe) 40 mg SUBCUT Q24H [facility] Glucose (Glucose Gel 15 Gm Gel..Gram.) 15 gm PO Q15M PRN; Protocol PRN Reason: per Hypoglycemia Standing Ord. Insulin Human Lispro (Insulin Lispro 100 Unit/Ml 3 Ml Vial) 0 unit SUBCUT QIDACHS [facility]; Protocol Magnesium Hydroxide (Milk Of Magnesia 30 Ml Oral.Susp) 30 ml PO DAILY PRN PRN Reason: Constipation Melatonin (Melatonin 3 Mg Tablet) 6 mg PO BEDTIME PRN PRN Reason: Insomnia Sodium Chloride (0.9 % Sodium Chloride Flush 3 Ml Syringe) 3 ml IVFLUSH QSHIFT [facility] Physical Exam Vital Signs and Narrative: Vital Signs: Last Vital Signs Temp 98.2 F 07/15/25 04:00 Pulse 62 07/15/25 04:00 Resp 12 07/15/25 04:00 BP 106/72 07/15/25 04:00 Pulse Ox 97 07/15/25 04:00 O2 Del Method Room Air 07/15/25 04:00 BMI result Body Mass Index 18.7 Gen: Appears be in no acute distress HEENT: NCAT, Moist mucosa. Pulmonary: Vesicular breath sounds, fair air entry CVS: Normal S1-S2 Abdomen: BS+, Soft, Nontender; right thigh erythema noted with small open wound. Extremities: Warm well perfused Neuro: Alert and awake. Results Labs 07/14/25 22:06 07/14/25 22:06 Labs: Laboratory Results - last 24 hr 07/14/25 07/14/25 07/15/25 21:37 22:06 00:27 MCV 86.7 MCH 30.3 MCHC 34.9 RDW 13.5 Plt Count 240 MPV 10.0 Immature Gran % (Auto) 0.3 Neut % (Auto) 80.3 H Lymph % (Auto) 13.3 L [place] % (Auto) 5.3 Eos % (Auto) 0.2 Baso % (Auto) 0.6 Lymph # (Auto) 0.8 L [place] # (Auto) 0.3 Eos # (Auto) 0.0 Baso # (Auto) 0.0 Abs Immat Gran (auto) 0.02 Absolute Neuts (auto) 5.0 Absolute Nucleated RBC 0.000 Nucleated RBC % (auto) 0.0 Anion Gap 15 Estim Creat Clear Calc 79.3 Estimated GFR > 60 POC Glucose > 600 H* Random Glucose 905 H* Lactic Acid 4.4 H* Lactic Acid F/U @ 2Hr 3.7 H* Lactic Acid F/U @ 4Hr Calcium 8.7 Magnesium 1.7 Total Bilirubin 0.3 AST 51 H ALT 62 H Alkaline Phosphatase 109 Total Protein 7.2 Albumin 3.5 Beta-Hydroxybutyrate 0.09 07/15/25 07/15/25 07/15/25 00:33 02:34 03:34 MCV MCH MCHC RDW Plt Count MPV Immature Gran % (Auto) Neut % (Auto) Lymph % (Auto) [place] % (Auto) Eos % (Auto) Baso % (Auto) Lymph # (Auto) [place] # (Auto) Eos # (Auto) Baso # (Auto) Abs Immat Gran (auto) Absolute Neuts (auto) Absolute Nucleated RBC Nucleated RBC % (auto) Anion Gap Estim Creat Clear Calc Estimated GFR POC Glucose > 600 H* 435 H* Random Glucose Lactic Acid Lactic Acid F/U @ 2Hr Lactic Acid F/U @ 4Hr 1.7 Calcium Magnesium Total Bilirubin AST ALT Alkaline Phosphatase Total Protein Albumin Beta-Hydroxybutyrate 07/15/25 04:26 MCV MCH MCHC RDW Plt Count MPV Immature Gran % (Auto) Neut % (Auto) Lymph % (Auto) [place] % (Auto) Eos % (Auto) Baso % (Auto) Lymph # (Auto) [place] # (Auto) Eos # (Auto) Baso # (Auto) Abs Immat Gran (auto) Absolute Neuts (auto) Absolute Nucleated RBC Nucleated RBC % (auto) Anion Gap Estim Creat Clear Calc Estimated GFR POC Glucose 424 H* Random Glucose Lactic Acid Lactic Acid F/U @ 2Hr Lactic Acid F/U @ 4Hr Calcium Magnesium Total Bilirubin AST ALT Alkaline Phosphatase Total Protein Albumin Beta-Hydroxybutyrate Assessment and Plan (1) Cellulitis and abscess of right leg: Status: Acute Plan 50-year-old male with a past medical history of IV drug abuse, diabetes-medication noncompliance; presented to the hospital today with a chief complaint of right thigh pain redness and swelling. Noted to have right thigh cellulitis. Right thigh cellulitis/abscess: CT scan showed soft tissue swelling and superficial abscess. Pain control Continue IV vancomycin and Zosyn General surgery and ID consult Diabetes/hyperglycemia: Patient blood glucose levels were 900s on presentation. Received IV fluids with improvement in blood glucose levels to 400s. Patient also received regular insulin IV push 5 units. Not in DKA s/w Lantus 20u plus ISS. Monitor POC glucose and adjust insulins accordingly Transaminitis: Will obtain acute hepatitis panel and right upper quadrant ultrasound Trend liver enzymes IV drug abuse: Addiction medicine consult. DVT prophylaxis: Lovenox Code status: Full code Quality Stroke Does the patient have a stroke diagnosis?: No VTE Prior VTE?: No VTE Risk Level:: Medical - moderate - high VTE Device Contraindication: Treatment Not Indicated VTE Drug Contraindication: N/A - Med Ordered
[2025-07-15 05:46] LABS: Glucose, Whole Blood 366 mg/dL (60-115)
[2025-07-15] MEDS: Insulin Glargine,Hum.rec.anlog 100 UNIT/ML 10 ML VIAL 20 UNIT SUBCUT ×2 (06:27→20:47)
[2025-07-15] MEDS: Lactated Ringers 1,000 ML 100 ML IVCONT ×2 (06:28→16:31)
--- NOTE | 2025-07-15 06:49 | HO.NURTONUR ---
Addendum entered by Yaz Hutchinson RN 07/15/25 07:29: POC 403 for breakfast, given insulin per sliding scale and MD Talley notified. Original Note: Chief Complaint: skin abscess 50-year-old male, full code, allergies to cyclobenzaprine, w/ PMHX of IV drug abuse, diabetes-medication noncompliance; presented to the hospital today with a chief complaint of right thigh pain redness and swelling. Patient mentioned about few days ago had small abscess of the thigh which popped; later he started to have swelling and redness which gradually increasing in size causing pain and limiting ambulation. Denies fevers, chest pain or palpitations, nausea vomiting, diarrhea, and urinary symptoms. Reports he has known history of diabetes but has not been not taking his medications as suggested. CT scan showed superficial cellulitis with small abscess. Given IV vancomycin and Zosyn. Plan: Pain control Continue IV vancomycin and Zosyn General surgery and ID consult Patient blood glucose levels were 900s on presentation received IV fluids with improvement in blood glucose levels to 400s. Patient also received regular insulin IV push 5 units. Not in DKA s/w Lantus 20u plus ISS. Addiction medicine consult Access: 22g to the right AC, and US guided 20g to the left AC w/ LR running at 100mL/hr
[2025-07-15 07:14] LABS: Glucose, Whole Blood 403 mg/dL (60-115)
[2025-07-15] MEDS: 0.9 % Sodium Chloride Flush 3 ML SYRINGE IVFLUSH ×2 (07:19→17:03)
--- NOTE | 2025-07-15 08:59 | P.PNIM_ITS ---
Subjective Subjective Date of Service: 07/15/25 Interval History: weakness Physical Exam 2 Exam: Exam: right thigh swelling, erythema Vital Signs: Vital Signs: Last Vital Signs Temp 96.8 F 07/15/25 08:39 Pulse 62 07/15/25 08:39 Resp 16 07/15/25 08:39 BP 107/76 07/15/25 08:39 Pulse Ox 95 07/15/25 08:39 O2 Del Method Room Air 07/15/25 08:39 BMI result Body Mass Index 18.7 Objective Data Active Medications Acetaminophen (Acetaminophen 325 Mg Tablet) 650 mg PO Q6H PRN PRN Reason: Pain, Mild 1-3,fever,headache Calcium Carbonate (Calcium Carbonate 750 Mg Tab.Chew) 750 mg PO Q4H PRN PRN Reason: Heartburn Dextrose (Dextrose 50 % 25 Gm/50 Ml Syringe) 25 gm IVPUSH Q15M PRN; Protocol PRN Reason: per Hypoglycemia Standing Ord. Enoxaparin Sodium (Enoxaparin Sodium 40 Mg/0.4 Ml Syringe) 40 mg SUBCUT Q24H [facility] Last Admin: 07/15/25 06:27 Dose: 40 mg Documented By: IGNACIO Glucose (Glucose Gel 15 Gm Gel..Gram.) 15 gm PO Q15M PRN; Protocol PRN Reason: per Hypoglycemia Standing Ord. Lactated Ringer's (Lr) 1,000 mls @ 100 mls/hr IVCONT .Q10H [facility] Last Admin: 07/15/25 06:28 Dose: 100 mls/hr Documented By: IGNACIO Vancomycin HCl 750 mg/ Sodium (Chloride) 265 mls @ 265 mls/hr IV Q12H [facility] Insulin Glargine (Insulin Glargine,Hum.Rec.Anlog 100 Unit/Ml 10 Ml Vial) 20 unit SUBCUT BEDTIME [facility] Last Admin: 07/15/25 06:27 Dose: 20 unit Documented By: IGNACIO Insulin Human Lispro (Insulin Lispro 100 Unit/Ml 3 Ml Vial) 0 unit SUBCUT QIDACHS [facility]; Protocol Last Admin: 07/15/25 07:19 Dose: 10 unit Documented By: TOBY Comments: MD Talley notified of POC Insulin Human Lispro (Insulin Lispro 100 Unit/Ml 3 Ml Vial) 5 unit SUBCUT QIDACHS [facility] Magnesium Hydroxide (Milk Of Magnesia 30 Ml Oral.Susp) 30 ml PO DAILY PRN PRN Reason: Constipation Melatonin (Melatonin 3 Mg Tablet) 6 mg PO BEDTIME PRN PRN Reason: Insomnia Pharmacy Consult (Consult Rx Vancomycin Dosing) 1 each MISCELLANE DAILY PRN PRN Reason: Consult order Sodium Chloride (0.9 % Sodium Chloride Flush 3 Ml Syringe) 3 ml IVFLUSH QSHIFT [facility] Last Admin: 07/15/25 07:19 Dose: 3 ml Documented By: TOBY Labs 07/14/25 22:06 07/14/25 22:06 Labs: Laboratory Results - last 24 hr 07/14/25 07/14/25 07/15/25 21:37 22:06 00:27 MCV 86.7 MCH 30.3 MCHC 34.9 RDW 13.5 Plt Count 240 MPV 10.0 Immature Gran % (Auto) 0.3 Neut % (Auto) 80.3 H Lymph % (Auto) 13.3 L [place] % (Auto) 5.3 Eos % (Auto) 0.2 Baso % (Auto) 0.6 Lymph # (Auto) 0.8 L [place] # (Auto) 0.3 Eos # (Auto) 0.0 Baso # (Auto) 0.0 Abs Immat Gran (auto) 0.02 Absolute Neuts (auto) 5.0 Absolute Nucleated RBC 0.000 Nucleated RBC % (auto) 0.0 Anion Gap 15 Estim Creat Clear Calc 79.3 Estimated GFR > 60 POC Glucose > 600 H* Random Glucose 905 H* Lactic Acid 4.4 H* Lactic Acid F/U @ 2Hr 3.7 H* Lactic Acid F/U @ 4Hr Calcium 8.7 Magnesium 1.7 Total Bilirubin 0.3 AST 51 H ALT 62 H Alkaline Phosphatase 109 Total Protein 7.2 Albumin 3.5 Beta-Hydroxybutyrate 0.09 07/15/25 07/15/25 07/15/25 00:33 02:34 03:34 MCV MCH MCHC RDW Plt Count MPV Immature Gran % (Auto) Neut % (Auto) Lymph % (Auto) [place] % (Auto) Eos % (Auto) Baso % (Auto) Lymph # (Auto) [place] # (Auto) Eos # (Auto) Baso # (Auto) Abs Immat Gran (auto) Absolute Neuts (auto) Absolute Nucleated RBC Nucleated RBC % (auto) Anion Gap Estim Creat Clear Calc Estimated GFR POC Glucose > 600 H* 435 H* Random Glucose Lactic Acid Lactic Acid F/U @ 2Hr Lactic Acid F/U @ 4Hr 1.7 Calcium Magnesium Total Bilirubin AST ALT Alkaline Phosphatase Total Protein Albumin Beta-Hydroxybutyrate 07/15/25 07/15/25 07/15/25 04:26 05:42 07:10 MCV MCH MCHC RDW Plt Count MPV Immature Gran % (Auto) Neut % (Auto) Lymph % (Auto) [place] % (Auto) Eos % (Auto) Baso % (Auto) Lymph # (Auto) [place] # (Auto) Eos # (Auto) Baso # (Auto) Abs Immat Gran (auto) Absolute Neuts (auto) Absolute Nucleated RBC Nucleated RBC % (auto) Anion Gap Estim Creat Clear Calc Estimated GFR POC Glucose 424 H* 366 H* 403 H* Random Glucose Lactic Acid Lactic Acid F/U @ 2Hr Lactic Acid F/U @ 4Hr Calcium Magnesium Total Bilirubin AST ALT Alkaline Phosphatase Total Protein Albumin Beta-Hydroxybutyrate Assessment and Plan (1) Hyperglycemia: Status: Acute Plan 50M PMH DM, IVDA, presented with hyperglycemia and right thigh pain and swelling Right thigh cellulitis and abscess in a patient uses IV drugs Continue IV vancomycin we will discontinue Zosyn, follow up surgery, culutres Diabetes with severe hyperglycemia Continue basal bolus insulin - added 5units preprandial monitor sugars, still very elevated >400 transamnitis follow up hepatitis viral panel ivda addiction dvt prophylaxis - lovenox full code reason for continued hospitalization:glucose still elevated, awaiting cultures Quality Stroke Does the patient have a stroke diagnosis?: No VTE Prior VTE?: No VTE Risk Level:: Medical - moderate - high VTE Device Contraindication: Treatment Not Indicated VTE Drug Contraindication: N/A - Med Ordered
--- NOTE | 2025-07-15 10:18 | P.CONGS_ITS ---
History of Present Illness Consult details Consult date: 07/15/25 Requesting physician: Jose Alfredo Enriquez Narrative: Surgical consultation requested for management of a right leg abscess in this 50-year-old male with history of IV drug abuse and poorly controlled diabetes. He reports a previous history of similar infections from IV drug injection in both his leg and arms. He denies a history of MRSA infections. He was found to have an extensive area of erythema involving the anterior right thigh. CT of the leg revealed an abscess collection and he subsequently underwent incision and drainage in the emergency department. A small collection was drained and packed. He reports an improvement in the pain following the incision and drainage. Review of Systems 2 Review of Systems: Yes Unobtainable due to mental condition PMFSH Social History Social History Household Members: Spouse Housing: House Do you presently have visiting nurse or other home services: No Patient Tobacco Use Status: Current everyday Tobacco user Tobacco use type: Cigarette Cigarette Packs Per Day: 0.5 Cigarettes Per Day: 10.0 Smoked in Last 30 Days: No Patient Interested in Nicotine Replacement: No Patient Given Instructions on How to Stop Smoking: No Second Hand Smoke Exposure: No Use of substances other than those prescribed or required for medical reasons: Yes Substance Use Type: Heroin Substance Use Frequency: Chronic Longstanding Last Used Substance: Unknown Have you been hit, kicked, punched, or otherwise hurt by someone within the past year? If so, by whom?: No Do you feel safe in your current relationship?: Yes Is there a partner from a previous relationship who is making you feel unsafe now?: No Are you made to feel afraid or neglected: No Advance Directives: No Advance Directives Information Provided: No Do you have a plan to hurt others: No Plan Recently lost weight without trying: Yes How much weight loss: 34pounds or more Eating poorly because of decreased appetite: Yes Nutrition screen score: 7 Nutrition Risks: Difficulty chewing Poor oral hygiene: No Meds Allergies Allergy/AdvReac Type Severity Reaction Status Date / Time cyclobenzaprine (From Allergy Unknown HIVES Verified 07/14/25 21:35 FLEXERIL) Active Medications: Current Medications Acetaminophen (Acetaminophen 325 Mg Tablet) 650 mg PO Q6H PRN PRN Reason: Pain, Mild 1-3,fever,headache Calcium Carbonate (Calcium Carbonate 750 Mg Tab.Chew) 750 mg PO Q4H PRN PRN Reason: Heartburn Dextrose (Dextrose 50 % 25 Gm/50 Ml Syringe) 25 gm IVPUSH Q15M PRN; Protocol PRN Reason: per Hypoglycemia Standing Ord. Enoxaparin Sodium (Enoxaparin Sodium 40 Mg/0.4 Ml Syringe) 40 mg SUBCUT Q24H [facility] Last Admin: 07/15/25 06:27 Dose: 40 mg Glucose (Glucose Gel 15 Gm Gel..Gram.) 15 gm PO Q15M PRN; Protocol PRN Reason: per Hypoglycemia Standing Ord. Lactated Ringer's (Lr) 1,000 mls @ 100 mls/hr IVCONT .Q10H [facility] Last Admin: 07/15/25 06:28 Dose: 100 mls/hr Vancomycin HCl 750 mg/ Sodium (Chloride) 265 mls @ 265 mls/hr IV Q12H [facility] Insulin Glargine (Insulin Glargine,Hum.Rec.Anlog 100 Unit/Ml 10 Ml Vial) 20 unit SUBCUT BEDTIME [facility] Last Admin: 07/15/25 06:27 Dose: 20 unit Insulin Human Lispro (Insulin Lispro 100 Unit/Ml 3 Ml Vial) 0 unit SUBCUT QIDACHS [facility]; Protocol Last Admin: 07/15/25 07:19 Dose: 10 unit Insulin Human Lispro (Insulin Lispro 100 Unit/Ml 3 Ml Vial) 5 unit SUBCUT QIDACHS [facility] Magnesium Hydroxide (Milk Of Magnesia 30 Ml Oral.Susp) 30 ml PO DAILY PRN PRN Reason: Constipation Melatonin (Melatonin 3 Mg Tablet) 6 mg PO BEDTIME PRN PRN Reason: Insomnia Pharmacy Consult (Consult Rx Vancomycin Dosing) 1 each MISCELLANE DAILY PRN PRN Reason: Consult order Sodium Chloride (0.9 % Sodium Chloride Flush 3 Ml Syringe) 3 ml IVFLUSH QSHIFT [facility] Last Admin: 07/15/25 07:19 Dose: 3 ml Home Medications ?Medication ?Instructions ?Recorded ?Confirmed ?Last Taken ?Type dulaglutide 0.75 mg/0.5 mL 0.75 mg subcut QWEEK 07/15/25 07/11/25 [facility] gabapentin 600 mg tablet 600 mg PO BID 07/15/2507/1507/14/25 History Physical Exam 2 Vital Signs: Vital Signs: Last Vital Signs Temp 96.8 F 07/15/25 08:39 Pulse 62 07/15/25 08:39 Resp 16 07/15/25 08:39 BP 107/76 07/15/25 08:39 Pulse Ox 95 07/15/25 08:39 O2 Del Method Room Air 07/15/25 08:39 BMI result Body Mass Index 19.1 Const: General: cooperative and no acute distress Nutritional Appearance: w ell nourished Orientation/consciousness: patient oriented x3 Limitations: no limitations HEENT: Head: Yes normocephalic and Yes atraumatic Ears: hearing grossly normal bilaterally Resp: Effort & Inspection: normal respiratory effort, no audible wheezes, no cough and no respiratory distress Cardio: Jugular venous distension: no JVD GI: Inspection: Yes normal to inspection Skin: Other: Warm, dry, no rash Neuro: General: patient oriented x3 Extrem: Other: Right leg: Eschar noted in the anterior mid thigh with incision and drainage slightly medial to this. Wound is open and draining appropriately with serous and purulent discharge. Slight erythema is noted surrounding this. No other fluctuant areas are appreciated. General: Yes no clubbing, cyanosis or edema Upper/lower leg/hip images: 1. Site of abscess anterior right thigh Results Labs 07/14/25 22:06 07/14/25 22:06 Labs: Abnormal lab results 07/14/25 07/14/25 07/15/25 Range/Units 21:37 22:06 00:27 RBC 4.59 L (4.60-5.80) X10*6/uL Hgb 13.9 L (14.0-18.0) g/dl Hct 39.8 L (42.0-52.0) % Neut % (Auto) 80.3 H (45-73) % Lymph % (Auto) 13.3 L (20-40) % Lymph # (Auto) 0.8 L (1.2-4.9) X10*3/uL Sodium 129 L (135-145) mmol/L Chloride 93 L (96-108) mmol/L POC Glucose > 600 H* (60-115) mg/dL Random Glucose 905 H* (60-115) mg/dL Lactic Acid 4.4 H* (0.5-2.0) mmol/L Lactic Acid F/U @ 2Hr 3.7 H* (0.5-2.0) mmol/L AST 51 H (5-37) U/L ALT 62 H (0-40) U/L 07/15/25 07/15/25 07/15/25 Range/Units 00:33 02:34 04:26 RBC (4.60-5.80) X10*6/uL Hgb (14.0-18.0) g/dl Hct (42.0-52.0) % Neut % (Auto) (45-73) % Lymph % (Auto) (20-40) % Lymph # (Auto) (1.2-4.9) X10*3/uL Sodium (135-145) mmol/L Chloride (96-108) mmol/L POC Glucose > 600 H* 435 H* 424 H* (60-115) mg/dL Random Glucose (60-115) mg/dL Lactic Acid (0.5-2.0) mmol/L Lactic Acid F/U @ 2Hr (0.5-2.0) mmol/L AST (5-37) U/L ALT (0-40) U/L 07/15/25 07/15/25 Range/Units 05:42 07:10 RBC (4.60-5.80) X10*6/uL Hgb (14.0-18.0) g/dl Hct (42.0-52.0) % Neut % (Auto) (45-73) % Lymph % (Auto) (20-40) % Lymph # (Auto) (1.2-4.9) X10*3/uL Sodium (135-145) mmol/L Chloride (96-108) mmol/L POC Glucose 366 H* 403 H* (60-115) mg/dL Random Glucose (60-115) mg/dL Lactic Acid (0.5-2.0) mmol/L Lactic Acid F/U @ 2Hr (0.5-2.0) mmol/L AST (5-37) U/L ALT (0-40) U/L Short CBC 07/14/25 Range/Units 22:06 WBC 6.2 (4.8-10.8) X10*3/uL Hgb 13.9 L (14.0-18.0) g/dl Hct 39.8 L (42.0-52.0) % Plt Count 240 (160-400) X10*3/uL BMP 07/14/25 22:06 Sodium 129 L Potassium 4.3 Chloride 93 L Carbon Dioxide 25 BUN 14 Creatinine 0.90 Calcium 8.7 Liver Function 07/14/25 Range/Units 22:06 Total Bilirubin 0.3 (0.0-1.0) mg/dL AST 51 H (5-37) U/L ALT 62 H (0-40) U/L Alkaline Phosphatase 109 (39-117) U/L Albumin 3.5 (3.5-5.0) g/dL All other labs normal. Assessment and Plan (1) Cellulitis and abscess of right leg: Status: Acute Plan 50-year-old male patient with a IVDA history presenting with abscess of the right thigh. Wounds have been adequately drained. No further incision and drainage is required at this time. We will monitor the wounds during his hospitalization. Procedures Date of Service Date of Service: 07/15/25
--- NOTE | 2025-07-15 10:19 | PHA.MEDREC ---
Addendum entered by Juan Waller PharmD 07/15/25 10:29: [facility] REVIEWED Original Note: Pharmacy Consult ? Medication Reconciliation Pharmacy has completed the medication reconciliation. Confirmed medication list with patient. Patient confirmed taking morning dose of gabapentin yesterday. patient says he takes clonazepam but there are no pharmacy claims or claims in PDMP. Patient claims he took clonazepam yesterday morning.
[2025-07-15] MEDS: methADONE HCl 20 MG/2 ML ORAL.CONC 10 MG PO (10:53)
[2025-07-15 11:40] LABS: Glucose, Whole Blood 418 mg/dL (60-115)
[2025-07-15 14:41] LABS: Cannabinoid Screen Urine Not Detected (Not Detect)
[2025-07-15 16:09] LABS: Glucose, Whole Blood 271 mg/dL (60-115)
[2025-07-15 20:38] LABS: Glucose, Whole Blood 228 mg/dL (60-115)
[2025-07-16 01:10] VITALS: RESP 16
[2025-07-16 03:46] VITALS: BP 120/79; PULSE 65; RESP 16; TEMP 36.1; O2SAT 98
[2025-07-16 05:44] VITALS: BP 109/56; PULSE 56
[2025-07-16 05:55] LABS: MANUAL DIFF FLAG NO
[2025-07-16 05:58] LABS: Hematocrit 35.8 % (42.0-52.0); Hemoglobin 12.5 g/dl (14.0-18.0); Imm Gran Abs Auto 0.01 X10*3/uL (0.00-0.03); Imm Gran Pct Auto 0.2 % (0.0-0.4); Lymphocytes Absolute Auto 2.0 X10*3/uL (1.2-4.9); Mean Corpuscular HGB Conc 34.9 g/dl (31.0-36.0); Mean Corpuscular Hemoglobin 29.8 pg (27.0-33.0); Mean Corpuscular Volume 85.2 fL (80.0-98.0); NRBC Abs Auto 0.000 X10*3/uL (0.0-0.012); NRBC Pct Auto 0.0 /100WBC (0.0-0.2); Platelet Count 222 X10*3/uL (160-400); Red Blood Count 4.20 X10*6/uL (4.60-5.80); White Blood Count 6.0 X10*3/uL (4.8-10.8)
[2025-07-16 06:15] LABS: Alanine Aminotransferase 47 U/L (0-40); Albumin Level 2.4 g/dL (3.5-5.0); Alkaline Phosphatase 72 U/L (39-117); Anion Gap 9 (12-20); Aspartate Amino Transferase 55 U/L (5-37); Blood Urea Nitrogen 9 mg/dL (9-16); Calcium 8.0 mg/dL (8.4-10.2); Carbon Dioxide 26 mmol/L (22-29); Chloride 107 mmol/L (96-108); Creatinine Clr Calc Pharmacy 148.6; Estimated Glomerular Filt Rate > 60; Magnesium 1.7 mg/dL (1.6-2.6); Potassium 3.7 mmol/L (3.3-5.1); Sodium 138 mmol/L (135-145); Total Protein 5.4 g/dL (6.5-8.0)
[2025-07-16 06:32] LABS: HBS Num1 0.36 mIU/mL (0-7.99); HBc Num1 0.06 S/CO (0.00-0.79); HBsAGNum1 0.27 S/CO (0.00-0.99); Hepatitis A Antibody IgM 0.19 Index (0-0.79); Hepatitis B Surface Antigen Negative (Negative); ~HepC Num1 12.39 S/CO (0.00-0.79); ~Hepatitis A Antibody IgM Nonreactive (Nonreactive); ~Hepatitis B Surface Antibody NONREACTIVE (Nonreactive); ~Hepatitis C Antibody Reactive (Nonreactive)
[2025-07-16] MEDS: Lactated Ringers 1,000 ML 100 ML IVCONT ×3 (06:40→19:19)
[2025-07-16 07:40] LABS: Glucose, Whole Blood 364 mg/dL (60-115)
[2025-07-16 08:00] VITALS: BP 108/67; PULSE 63; RESP 16; TEMP 36.7; O2SAT 98
[2025-07-16] MEDS: 0.9 % Sodium Chloride Flush 3 ML SYRINGE IVFLUSH ×2 (08:19→11:28)
--- NOTE | 2025-07-16 08:50 | HO.PM.IMPN ---
Subjective Subjective Date of Service: 07/16/25 Interval History: weakness Physical Exam Vital Signs: Vital Signs: Last Vital Signs Temp 98.0 F 07/16/25 08:00 Pulse 63 07/16/25 08:00 Resp 16 07/16/25 08:00 BP 108/67 07/16/25 08:00 Pulse Ox 98 07/16/25 08:00 O2 Del Method Room Air 07/16/25 08:00 BMI result Body Mass Index 19.1 Const: General: cooperative and no acute distress Nutritional Appearance: well nourished Orientation/consciousness: patient oriented x3 Limitations: no limitations HEENT: Head: Yes normocephalic and Yes atraumatic Ears: hearing grossly normal bilaterally Resp: Effort & Inspection: normal respiratory effort, no audible wheezes, no cough and no respiratory distress Cardio: Jugular venous distension: no JVD GI: Inspection: Yes normal to inspection Skin: Other: Warm, dry, no rash Neuro: General: patient oriented x3 Extrem: Other: Right leg: Eschar noted in the anterior mid thigh with incision and drainage slightly medial to this. Wound is open and draining appropriately with serous and purulent discharge. Slight erythema is noted surrounding this. No other fluctuant areas are appreciated. General: Yes no clubbing, cyanosis or edema Objective Data Active Medications Acetaminophen (Acetaminophen 325 Mg Tablet) 650 mg PO Q6H PRN PRN Reason: Pain, Mild 1-3,fever,headache Calcium Carbonate (Calcium Carbonate 750 Mg Tab.Chew) 750 mg PO Q4H PRN PRN Reason: Heartburn Dextrose (Dextrose 50 % 25 Gm/50 Ml Syringe) 25 gm IVPUSH Q15M PRN; Protocol PRN Reason: per Hypoglycemia Standing Ord. Enoxaparin Sodium (Enoxaparin Sodium 40 Mg/0.4 Ml Syringe) 40 mg SUBCUT Q24H [facility] Last Admin: 07/16/25 05:55 Dose: Not Given Documented By: AZAEL Non-Admin Reason: Patient Refused Gabapentin (Gabapentin 600 Mg Tablet) 600 mg PO BID [facility] Last Admin: 07/16/25 08:18 Dose: 600 mg Documented By: LES Glucose (Glucose Gel 15 Gm Gel..Gram.) 15 gm PO Q15M PRN; Protocol PRN Reason: per Hypoglycemia Standing Ord. Hydromorphone HCl (Hydromorphone Hcl 0.5 Mg/0.5 Ml Syringe) 0.5 mg IVPUSH Q3H PRN; Protocol PRN Reason: Pain, Severe (Pain Scale 7-10) Last Admin: 07/16/25 05:53 Dose: 0.5 mg Documented By: AZAEL Lactated Ringer's (Lr) 1,000 mls @ 100 mls/hr IVCONT .Q10H [facility] Last Admin: 07/16/25 06:40 Dose: 100 mls/hr Documented By: AZAEL Vancomycin HCl 750 mg/ Sodium (Chloride) 265 mls @ 265 mls/hr IV Q12H [facility] Last Infusion: 07/16/25 02:12 Dose: Infused Documented By: AZAEL Insulin Glargine (Insulin Glargine,Hum.Rec.Anlog 100 Unit/Ml 10 Ml Vial) 20 unit SUBCUT BEDTIME [facility] Last Admin: 07/15/25 20:47 Dose: 20 unit Documented By: ROBIN Insulin Human Lispro (Insulin Lispro 100 Unit/Ml 3 Ml Vial) 0 unit SUBCUT QIDAS [facility]; Protocol Last Admin: 07/16/25 08:19 Dose: 10 unit Documented By: LES Insulin Human Lispro (Insulin Lispro 100 Unit/Ml 3 Ml Vial) 5 unit SUBCUT QIDAS [facility] Last Admin: 07/16/25 08:19 Dose: 5 unit Documented By: LES Magnesium Hydroxide (Milk Of Magnesia 30 Ml Oral.Susp) 30 ml PO DAILY PRN PRN Reason: Constipation Melatonin (Melatonin 3 Mg Tablet) 6 mg PO BEDTIME PRN PRN Reason: Insomnia Ondansetron HCl (Ondansetron Hcl 4 Mg/2 Ml Vial) 4 mg IVPUSH Q6H PRN PRN Reason: Nausea Last Admin: 07/15/25 17:00 Dose: 4 mg Documented By: ROBIN Pharmacy Consult (Consult Rx Vancomycin Dosing) 1 each MISCELLANE DAILY PRN PRN Reason: Consult order Sodium Chloride (0.9 % Sodium Chloride Flush 3 Ml Syringe) 3 ml IVFLUSH QSHIFT [facility] Last Admin: 07/16/25 08:19 Dose: 3 ml Documented By: LES Labs 07/16/25 05:39 07/16/25 05:39 Labs: Laboratory Results - last 24 hr 07/15/25 07/15/25 07/15/25 11:15 14:20 16:06 MCV MCH MCHC RDW Plt Count MPV Immature Gran % (Auto) Neut % (Auto) Lymph % (Auto) [place] % (Auto) Eos % (Auto) Baso % (Auto) Lymph # (Auto) [place] # (Auto) Eos # (Auto) Baso # (Auto) Abs Immat Gran (auto) Absolute Neuts (auto) Absolute Nucleated RBC Nucleated RBC % (auto) Anion Gap Estim Creat Clear Calc Estimated GFR POC Glucose 418 H* 271 H Random Glucose Calcium Magnesium Total Bilirubin Direct Bilirubin AST ALT Alkaline Phosphatase Total Protein Albumin Urine Opiates Screen POSITIVE H Ur Buprenorphine Scrn Not Detected Ur Oxycodone Screen Not Detected Urine Methadone Screen Not Detected Urine Fentanyl Screen POSITIVE H Ur Barbiturates Screen Not Detected Ur Phencyclidine Scrn Not Detected Ur Amphetamines Screen Not Detected U Benzodiazepines Scrn POSITIVE H Urine Cocaine Screen POSITIVE H U Marijuana (THC) Screen Not Detected Hepatitis A IgM Ab Hep Bs Antigen Hep Bs Antibody Hep B Core Total Ab Hepatitis C Ab (EIA) 07/15/25 07/16/25 07/16/25 20:33 05:39 07:33 MCV 85.2 MCH 29.8 MCHC 34.9 RDW 13.5 Plt Count 222 MPV 9.4 Immature Gran % (Auto) 0.2 Neut % (Auto) 56.5 Lymph % (Auto) 33.2 [place] % (Auto) 8.8 Eos % (Auto) 1.0 Baso % (Auto) 0.3 Lymph # (Auto) 2.0 [place] # (Auto) 0.5 Eos # (Auto) 0.1 Baso # (Auto) 0.0 Abs Immat Gran (auto) 0.01 Absolute Neuts (auto) 3.4 Absolute Nucleated RBC 0.000 Nucleated RBC % (auto) 0.0 Anion Gap 9 L Estim Creat Clear Calc 148.6 Estimated GFR > 60 POC Glucose 228 H 364 H* Random Glucose 239 H Calcium 8.0 L D Magnesium 1.7 Total Bilirubin 0.2 Direct Bilirubin < 0.2 AST 55 H ALT 47 H Alkaline Phosphatase 72 Total Protein 5.4 L Albumin 2.4 L Urine Opiates Screen Ur Buprenorphine Scrn Ur Oxycodone Screen Urine Methadone Screen Urine Fentanyl Screen Ur Barbiturates Screen Ur Phencyclidine Scrn Ur Amphetamines Screen U Benzodiazepines Scrn Urine Cocaine Screen U Marijuana (THC) Screen Hepatitis A IgM Ab Nonreactive Hep Bs Antigen Negative Hep Bs Antibody NONREACTIVE Hep B Core Total Ab Nonreactive Hepatitis C Ab (EIA) Reactive H Microbiology Microbiology Results: Microbiology 07/14/25 22:53 Blood Culture - Preliminary Blood - Venous No growth after 24 hours. 07/14/25 22:06 Blood Culture - Preliminary Blood - Venous No growth after 24 hours. Assessment and Plan (1) Hyperglycemia: Status: Acute Plan 50M PMH DM, IVDA, presented with hyperglycemia and right thigh pain and swelling Right thigh cellulitis and abscess in a patient uses IV drugs Continue IV vancomycin we will discontinue Zosyn, follow up surgery, culutres Diabetes with severe hyperglycemia Continue basal bolus insulin - added 5units preprandial, increased lantus to 20 bid monitor sugars, still elevated >300 transamnitis follow up hepatitis viral panel ivda addiction dvt prophylaxis - lovenox full code reason for continued hospitalization:glucose still elevated, awaiting cultures Quality Stroke Does the patient have a stroke diagnosis?: No VTE Prior VTE?: No VTE Risk Level:: Medical - moderate - high VTE Device Contraindication: Treatment Not Indicated VTE Drug Contraindication: N/A - Med Ordered
--- NOTE | 2025-07-16 09:03 | P.PNGS_ITS ---
Subjective Subjective Date of Service: 07/16/25 Interval history: Continues to c/o pain at right leg. Physical Exam 2 Vital Signs: Vital Signs: Last Vital Signs Temp 98.0 F 07/16/25 08:00 Pulse 63 07/16/25 08:00 Resp 16 07/16/25 08:00 BP 108/67 07/16/25 08:00 Pulse Ox 98 07/16/25 08:00 O2 Del Method Room Air 07/16/25 08:00 BMI result Body Mass Index 19.1 Const: General: comfortable, no acute distress and alert O rientation/consciousness: patient oriented x3 Resp: Effort & Inspection: normal respiratory effort Skin: Other: warm and dry right lower extremity as noted below Neuro: General: patient oriented x3 and moves all extremities Extrem: Other: right upper medial thigh - I&D site packing removed, remains open and purulent drainage expressed wound probed with q tip and repacked with 1/2in plain packing; fluctuance underlying lateral eschar with pinpoint opening at distal aspect which was therefore sharply opened and 1cm of eschar full thickness sharply debrided to allow for drainage of purulence; small amount of fluctuance underlying small 0.5 eschar at distal aspect of erythema which was sharply removed with scissors and purulent drainage expressed ; erythema appears somewhat improved from admission Objective Data Active Medications Acetaminophen (Acetaminophen 325 Mg Tablet) 650 mg PO Q6H PRN PRN Reason: Pain, Mild 1-3,fever,headache Calcium Carbonate (Calcium Carbonate 750 Mg Tab.Chew) 750 mg PO Q4H PRN PRN Reason: Heartburn Dextrose (Dextrose 50 % 25 Gm/50 Ml Syringe) 25 gm IVPUSH Q15M PRN; Protocol PRN Reason: per Hypoglycemia Standing Ord. Enoxaparin Sodium (Enoxaparin Sodium 40 Mg/0.4 Ml Syringe) 40 mg SUBCUT Q24H [facility] Last Admin: 07/16/25 05:55 Dose: Not Given Documented By: AZAEL Non-Admin Reason: Patient Refused Gabapentin (Gabapentin 600 Mg Tablet) 600 mg PO BID [facility] Last Admin: 07/16/25 08:18 Dose: 600 mg Documented By: LES Glucose (Glucose Gel 15 Gm Gel..Gram.) 15 gm PO Q15M PRN; Protocol PRN Reason: per Hypoglycemia Standing Ord. Hydromorphone HCl (Hydromorphone Hcl 0.5 Mg/0.5 Ml Syringe) 0.5 mg IVPUSH Q3H PRN; Protocol PRN Reason: Pain, Severe (Pain Scale 7-10) Last Admin: 07/16/25 05:53 Dose: 0.5 mg Documented By: AZAEL Lactated Ringer's (Lr) 1,000 mls @ 100 mls/hr IVCONT .Q10H [facility] Last Admin: 07/16/25 06:40 Dose: 100 mls/hr Documented By: AZAEL Vancomycin HCl 750 mg/ Sodium (Chloride) 265 mls @ 265 mls/hr IV Q12H [facility] Last Infusion: 07/16/25 02:12 Dose: Infused Documented By: AZAEL Insulin Glargine (Insulin Glargine,Hum.Rec.Anlog 100 Unit/Ml 10 Ml Vial) 20 unit SUBCUT BID [facility] Insulin Human Lispro (Insulin Lispro 100 Unit/Ml 3 Ml Vial) 0 unit SUBCUT QIDACHS [facility]; Protocol Last Admin: 07/16/25 08:19 Dose: 10 unit Documented By: LES Insulin Human Lispro (Insulin Lispro 100 Unit/Ml 3 Ml Vial) 5 unit SUBCUT QIDACHS [facility] Last Admin: 07/16/25 08:19 Dose: 5 unit Documented By: LES Magnesium Hydroxide (Milk Of Magnesia 30 Ml Oral.Susp) 30 ml PO DAILY PRN PRN Reason: Constipation Melatonin (Melatonin 3 Mg Tablet) 6 mg PO BEDTIME PRN PRN Reason: Insomnia Ondansetron HCl (Ondansetron Hcl 4 Mg/2 Ml Vial) 4 mg IVPUSH Q6H PRN PRN Reason: Nausea Last Admin: 07/15/25 17:00 Dose: 4 mg Documented By: ROBIN Pharmacy Consult (Consult Rx Vancomycin Dosing) 1 each MISCELLANE DAILY PRN PRN Reason: Consult order Sodium Chloride (0.9 % Sodium Chloride Flush 3 Ml Syringe) 3 ml IVFLUSH QSHIFT [facility] Last Admin: 07/16/25 08:19 Dose: 3 ml Documented By: LES Labs 07/16/25 05:39 07/16/25 05:39 Labs: Laboratory Results - last 24 hr 07/15/25 07/15/25 07/15/25 11:15 14:20 16:06 MCV MCH MCHC RDW Plt Count MPV Immature Gran % (Auto) Neut % (Auto) Lymph % (Auto) [place] % (Auto) Eos % (Auto) Baso % (Auto) Lymph # (Auto) [place] # (Auto) Eos # (Auto) Baso # (Auto) Abs Immat Gran (auto) Absolute Neuts (auto) Absolute Nucleated RBC Nucleated RBC % (auto) Anion Gap Estim Creat Clear Calc Estimated GFR POC Glucose 418 H* 271 H Random Glucose Calcium Magnesium Total Bilirubin Direct Bilirubin AST ALT Alkaline Phosphatase Total Protein Albumin Urine Opiates Screen POSITIVE H Ur Buprenorphine Scrn Not Detected Ur Oxycodone Screen Not Detected Urine Methadone Screen Not Detected Urine Fentanyl Screen POSITIVE H Ur Barbiturates Screen Not Detected Ur Phencyclidine Scrn Not Detected Ur Amphetamines Screen Not Detected U Benzodiazepines Scrn POSITIVE H Urine Cocaine Screen POSITIVE H U Marijuana (THC) Screen Not Detected Hepatitis A IgM Ab Hep Bs Antigen Hep Bs Antibody Hep B Core Total Ab Hepatitis C Ab (EIA) 07/15/25 07/16/25 07/16/25 20:33 05:39 07:33 MCV 85.2 MCH 29.8 MCHC 34.9 RDW 13.5 Plt Count 222 MPV 9.4 Immature Gran % (Auto) 0.2 Neut % (Auto) 56.5 Lymph % (Auto) 33.2 [place] % (Auto) 8.8 Eos % (Auto) 1.0 Baso % (Auto) 0.3 Lymph # (Auto) 2.0 [place] # (Auto) 0.5 Eos # (Auto) 0.1 Baso # (Auto) 0.0 Abs Immat Gran (auto) 0.01 Absolute Neuts (auto) 3.4 Absolute Nucleated RBC 0.000 Nucleated RBC % (auto) 0.0 Anion Gap 9 L Estim Creat Clear Calc 148.6 Estimated GFR > 60 POC Glucose 228 H 364 H* Random Glucose 239 H Calcium 8.0 L D Magnesium 1.7 Total Bilirubin 0.2 Direct Bilirubin < 0.2 AST 55 H ALT 47 H Alkaline Phosphatase 72 Total Protein 5.4 L Albumin 2.4 L Urine Opiates Screen Ur Buprenorphine Scrn Ur Oxycodone Screen Urine Methadone Screen Urine Fentanyl Screen Ur Barbiturates Screen Ur Phencyclidine Scrn Ur Amphetamines Screen U Benzodiazepines Scrn Urine Cocaine Screen U Marijuana (THC) Screen Hepatitis A IgM Ab Nonreactive Hep Bs Antigen Negative Hep Bs Antibody NONREACTIVE Hep B Core Total Ab Nonreactive Hepatitis C Ab (EIA) Reactive H Microbiology Microbiology Results: Microbiology 07/14/25 22:53 Blood Culture - Preliminary Blood - Venous No growth after 24 hours. 07/14/25 22:06 Blood Culture - Preliminary Blood - Venous No growth after 24 hours. Procedures Date of Service Date of Service: 07/16/25 Progress Note: A&P Assessment and plan (1) Cellulitis and abscess of right leg: Status: Acute Plan Abscess of right lower extremity- persistent fluctuance of I&D site as well as eschar of lateral aspect of upper thigh- eschar was sharply debrided to open up and allow for purulent drainage and I&D site probed and repacked to allow for continued drainage. Dry dressing placed with fluffs and abd dressing followed by tape and tubular stockinette. Cont IV abx for at least another day. Will continue to follow. Time Spent With Patient Time: Total time managing care of this patient today ____ minutes. Quality Stroke Does the patient have a stroke diagnosis?: No VTE Prior VTE?: No VTE Risk Level:: Medical - moderate - high VTE Device Contraindication: Treatment Not Indicated VTE Drug Contraindication: N/A - Med Ordered
[2025-07-16] MEDS: Insulin Glargine,Hum.rec.anlog 100 UNIT/ML 10 ML VIAL 20 UNIT SUBCUT ×2 (09:06→21:24)
[2025-07-16] MEDS: methADONE HCl 20 MG/2 ML ORAL.CONC PO ×2 (09:15→11:25)
--- NOTE | 2025-07-16 09:19 | MHC.CM.PN ---
Patient lives at home w/ girlfriend. Functionally independent. Denies use of DME or services. Hx IVDU - reports he is sober, was previously on methadone but no longer needs it. PCP Elsy Mojica MD. He is not sure the last time he saw PCP, potentially over a year, and he will schedule a follow up appt. DP: Home, could benefit from VNA for wound care/diabetic teaching, girlfriend can also assist w/ wound care. Daughter to transport. CM will continue to follow.
--- NOTE | 2025-07-16 10:08 | HE.PHANOTE ---
RE: VANCO DOSING Trough came back as 7.4 mg/L, renal function is improving. Dose is increased to 1500 mg q12h, next trough is scheduled for 07/17/25 @0900.
[2025-07-16 11:23] LABS: Glucose, Whole Blood 404 mg/dL (60-115)
--- NOTE | 2025-07-16 14:18 | HO.ADDICT_ITS ---
History of Present Illness Date of Service: 07/16/2025 Chief Complaint: cellulitis Reason for Consult: OUD Sources of Information: chart reviewed HPI Narrative: Patient is a 50 year old male with history of OUD, who was medically admitted with cellulitis of the leg. Consult requested due to ongoing opiate use. --most information obtained via chart review and patient's partner, as patient was resting comfortable when seen by t/w. Patient was seen by teacher public health over the weekend, and reported previously being engaged in treatment for OUD via [facility]. He states his methadone dose was approx 110mg. Per patient, he has not been there or received methadone for 3-4 months and has been using fentanyl. Denied any history of ATS level of care. Expressed desire to resume methadone. Today received a total of 40mg. While patient was sleeping when seen by t/w, his partner reported an improvement in his withdrawal sx. Labs reviewed Hepatitis C+--VL ordered HIV screeen ordered Medical Evaluation Reviewed: Yes Review of Systems Review of Systems patient sleeping comfortable. Family member reported an improvement in overall sx Diagnostics Vital Signs (24Hr): Vital Signs - 24 hr 07/15/25 15:32 07/15/25 20:00 07/16/25 01:10 Temperature 97.5 F 97.9 F Pulse Rate 60 53 Respiratory Rate 18 16 16 Blood Pressure 114/66 104/66 Pulse Oximetry 98 98 Oxygen Delivery Method Room Air Room Air 07/16/25 03:46 07/16/25 05:44 07/16/25 08:00 Temperature 96.9 F 98.0 F Pulse Rate 65 56 63 Respiratory Rate 16 16 Blood Pressure 120/79 109/56 L 108/67 Pulse Oximetry 98 98 Oxygen Delivery Method Room Air Room Air BMI result Body Mass Index 19.1 Labs 07/16/25 05:39 07/16/25 05:39 Labs: Laboratory Results - last 48 hr 07/14/25 07/14/25 07/15/25 21:37 22:06 00:27 WBC 6.2 RBC 4.59 L Hgb 13.9 L Hct 39.8 L MCV 86.7 MCH 30.3 MCHC 34.9 RDW 13.5 Plt Count 240 MPV 10.0 Immature Gran % (Auto) 0.3 Neut % (Auto) 80.3 H Lymph % (Auto) 13.3 L [place] % (Auto) 5.3 Eos % (Auto) 0.2 Baso % (Auto) 0.6 Lymph # (Auto) 0.8 L [place] # (Auto) 0.3 Eos # (Auto) 0.0 Baso # (Auto) 0.0 Abs Immat Gran (auto) 0.02 Absolute Neuts (auto) 5.0 Absolute Nucleated RBC 0.000 Nucleated RBC % (auto) 0.0 Sodium 129 L Potassium 4.3 Chloride 93 L Carbon Dioxide 25 Anion Gap 15 BUN 14 Creatinine 0.90 Estim Creat Clear Calc 79.3 Estimated GFR > 60 POC Glucose > 600 H* Random Glucose 905 H* Lactic Acid 4.4 H* Lactic Acid F/U @ 2Hr 3.7 H* Lactic Acid F/U @ 4Hr Calcium 8.7 Magnesium 1.7 Total Bilirubin 0.3 Direct Bilirubin AST 51 H ALT 62 H Alkaline Phosphatase 109 Total Protein 7.2 Albumin 3.5 Beta-Hydroxybutyrate 0.09 Random Vancomycin Urine Opiates Screen Ur Buprenorphine Scrn Ur Oxycodone Screen Urine Methadone Screen Urine Fentanyl Screen Ur Barbiturates Screen Ur Phencyclidine Scrn Ur Amphetamines Screen U Benzodiazepines Scrn Urine Cocaine Screen U Marijuana (THC) Screen Hepatitis A IgM Ab Hep Bs Antigen Hep Bs Antibody Hep B Core Total Ab Hepatitis C Ab (EIA) 07/15/25 07/15/25 07/15/25 00:33 02:34 03:34 WBC RBC Hgb Hct MCV MCH MCHC RDW Plt Count MPV Immature Gran % (Auto) Neut % (Auto) Lymph % (Auto) [place] % (Auto) Eos % (Auto) Baso % (Auto) Lymph # (Auto) [place] # (Auto) Eos # (Auto) Baso # (Auto) Abs Immat Gran (auto) Absolute Neuts (auto) Absolute Nucleated RBC Nucleated RBC % (auto) Sodium Potassium Chloride Carbon Dioxide Anion Gap BUN Creatinine Estim Creat Clear Calc Estimated GFR POC Glucose > 600 H* 435 H* Random Glucose Lactic Acid Lactic Acid F/U @ 2Hr Lactic Acid F/U @ 4Hr 1.7 Calcium Magnesium Total Bilirubin Direct Bilirubin AST ALT Alkaline Phosphatase Total Protein Albumin Beta-Hydroxybutyrate Random Vancomycin Urine Opiates Screen Ur Buprenorphine Scrn Ur Oxycodone Screen Urine Methadone Screen Urine Fentanyl Screen Ur Barbiturates Screen Ur Phencyclidine Scrn Ur Amphetamines Screen U Benzodiazepines Scrn Urine Cocaine Screen U Marijuana (THC) Screen Hepatitis A IgM Ab Hep Bs Antigen Hep Bs Antibody Hep B Core Total Ab Hepatitis C Ab (EIA) 07/15/25 07/15/25 07/15/25 04:26 05:42 07:10 WBC RBC Hgb Hct MCV MCH MCHC RDW Plt Count MPV Immature Gran % (Auto) Neut % (Auto) Lymph % (Auto) [place] % (Auto) Eos % (Auto) Baso % (Auto) Lymph # (Auto) [place] # (Auto) Eos # (Auto) Baso # (Auto) Abs Immat Gran (auto) Absolute Neuts (auto) Absolute Nucleated RBC Nucleated RBC % (auto) Sodium Potassium Chloride Carbon Dioxide Anion Gap BUN Creatinine Estim Creat Clear Calc Estimated GFR POC Glucose 424 H* 366 H* 403 H* Random Glucose Lactic Acid Lactic Acid F/U @ 2Hr Lactic Acid F/U @ 4Hr Calcium Magnesium Total Bilirubin Direct Bilirubin AST ALT Alkaline Phosphatase Total Protein Albumin Beta-Hydroxybutyrate Random Vancomycin Urine Opiates Screen Ur Buprenorphine Scrn Ur Oxycodone Screen Urine Methadone Screen Urine Fentanyl Screen Ur Barbiturates Screen Ur Phencyclidine Scrn Ur Amphetamines Screen U Benzodiazepines Scrn Urine Cocaine Screen U Marijuana (THC) Screen Hepatitis A IgM Ab Hep Bs Antigen Hep Bs Antibody Hep B Core Total Ab Hepatitis C Ab (EIA) 07/15/25 07/15/25 07/15/25 11:15 14:20 16:06 WBC RBC Hgb Hct MCV MCH MCHC RDW Plt Count MPV Immature Gran % (Auto) Neut % (Auto) Lymph % (Auto) [place] % (Auto) Eos % (Auto) Baso % (Auto) Lymph # (Auto) [place] # (Auto) Eos # (Auto) Baso # (Auto) Abs Immat Gran (auto) Absolute Neuts (auto) Absolute Nucleated RBC Nucleated RBC % (auto) Sodium Potassium Chloride Carbon Dioxide Anion Gap BUN Creatinine Estim Creat Clear Calc Estimated GFR POC Glucose 418 H* 271 H Random Glucose Lactic Acid Lactic Acid F/U @ 2Hr Lactic Acid F/U @ 4Hr Calcium Magnesium Total Bilirubin Direct Bilirubin AST ALT Alkaline Phosphatase Total Protein Albumin Beta-Hydroxybutyrate Random Vancomycin Urine Opiates Screen POSITIVE H Ur Buprenorphine Scrn Not Detected Ur Oxycodone Screen Not Detected Urine Methadone Screen Not Detected Urine Fentanyl Screen POSITIVE H Ur Barbiturates Screen Not Detected Ur Phencyclidine Scrn Not Detected Ur Amphetamines Screen Not Detected U Benzodiazepines Scrn POSITIVE H Urine Cocaine Screen POSITIVE H U Marijuana (THC) Screen Not Detected Hepatitis A IgM Ab Hep Bs Antigen Hep Bs Antibody Hep B Core Total Ab Hepatitis C Ab (EIA) 07/15/25 07/16/25 07/16/25 20:33 05:39 07:33 WBC 6.0 RBC 4.20 L Hgb 12.5 L Hct 35.8 L MCV 85.2 MCH 29.8 MCHC 34.9 RDW 13.5 Plt Count 222 MPV 9.4 Immature Gran % (Auto) 0.2 Neut % (Auto) 56.5 Lymph % (Auto) 33.2 [place] % (Auto) 8.8 Eos % (Auto) 1.0 Baso % (Auto) 0.3 Lymph # (Auto) 2.0 [place] # (Auto) 0.5 Eos # (Auto) 0.1 Baso # (Auto) 0.0 Abs Immat Gran (auto) 0.01 Absolute Neuts (auto) 3.4 Absolute Nucleated RBC 0.000 Nucleated RBC % (auto) 0.0 Sodium 138 Potassium 3.7 Chloride 107 Carbon Dioxide 26 Anion Gap 9 L BUN 9 Creatinine 0.49 L Estim Creat Clear Calc 148.6 Estimated GFR > 60 POC Glucose 228 H 364 H* Random Glucose 239 H Lactic Acid Lactic Acid F/U @ 2Hr Lactic Acid F/U @ 4Hr Calcium 8.0 L D Magnesium 1.7 Total Bilirubin 0.2 Direct Bilirubin < 0.2 AST 55 H ALT 47 H Alkaline Phosphatase 72 Total Protein 5.4 L Albumin 2.4 L Beta-Hydroxybutyrate Random Vancomycin Urine Opiates Screen Ur Buprenorphine Scrn Ur Oxycodone Screen Urine Methadone Screen Urine Fentanyl Screen Ur Barbiturates Screen Ur Phencyclidine Scrn Ur Amphetamines Screen U Benzodiazepines Scrn Urine Cocaine Screen U Marijuana (THC) Screen Hepatitis A IgM Ab Nonreactive Hep Bs Antigen Negative Hep Bs Antibody NONREACTIVE Hep B Core Total Ab Nonreactive Hepatitis C Ab (EIA) Reactive H 07/16/25 07/16/25 09:28 11:18 WBC RBC Hgb Hct MCV MCH MCHC RDW Plt Count MPV Immature Gran % (Auto) Neut % (Auto) Lymph % (Auto) [place] % (Auto) Eos % (Auto) Baso % (Auto) Lymph # (Auto) [place] # (Auto) Eos # (Auto) Baso # (Auto) Abs Immat Gran (auto) Absolute Neuts (auto) Absolute Nucleated RBC Nucleated RBC % (auto) Sodium Potassium Chloride Carbon Dioxide Anion Gap BUN Creatinine Estim Creat Clear Calc Estimated GFR POC Glucose 404 H* Random Glucose Lactic Acid Lactic Acid F/U @ 2Hr Lactic Acid F/U @ 4Hr Calcium Magnesium Total Bilirubin Direct Bilirubin AST ALT Alkaline Phosphatase Total Protein Albumin Beta-Hydroxybutyrate Random Vancomycin 7.4 L Urine Opiates Screen Ur Buprenorphine Scrn Ur Oxycodone Screen Urine Methadone Screen Urine Fentanyl Screen Ur Barbiturates Screen Ur Phencyclidine Scrn Ur Amphetamines Screen U Benzodiazepines Scrn Urine Cocaine Screen U Marijuana (THC) Screen Hepatitis A IgM Ab Hep Bs Antigen Hep Bs Antibody Hep B Core Total Ab Hepatitis C Ab (EIA) Mental Status Exam Mental Status Exam Narrative: patient sleeping no restlessness or diaphoresis noted Medications Medications Current Medications Acetaminophen (Acetaminophen 325 Mg Tablet) 650 mg PO Q6H PRN PRN Reason: Pain, Mild 1-3,fever,headache Calcium Carbonate (Calcium Carbonate 750 Mg Tab.Chew) 750 mg PO Q4H PRN PRN Reason: Heartburn Dextrose (Dextrose 50 % 25 Gm/50 Ml Syringe) 25 gm IVPUSH Q15M PRN; Protocol PRN Reason: per Hypoglycemia Standing Ord. Enoxaparin Sodium (Enoxaparin Sodium 40 Mg/0.4 Ml Syringe) 40 mg SUBCUT Q24H [facility] Last Admin: 07/16/25 05:55 Dose: Not Given Gabapentin (Gabapentin 600 Mg Tablet) 600 mg PO BID [facility] Last Admin: 07/16/25 08:18 Dose: 600 mg Glucose (Glucose Gel 15 Gm Gel..Gram.) 15 gm PO Q15M PRN; Protocol PRN Reason: per Hypoglycemia Standing Ord. Hydromorphone HCl (Hydromorphone Hcl 0.5 Mg/0.5 Ml Syringe) 0.5 mg IVPUSH Q3H PRN; Protocol PRN Reason: Pain, Severe (Pain Scale 7-10) Last Admin: 07/16/25 09:07 Dose: 0.5 mg Hydroxyzine HCl (Hydroxyzine Hcl 50 Mg Tablet) 50 mg PO Q6H PRN PRN Reason: anxiety/restlessness Last Admin: 07/16/25 11:55 Dose: 50 mg Lactated Ringer's (Lr) 1,000 mls @ 100 mls/hr IVCONT .Q10H [facility] Last Admin: 07/16/25 11:27 Dose: 100 mls/hr Vancomycin HCl 1,500 mg/ (Sodium Chloride) 500 mls @ 333.333 mls/hr IV Q12H [facility] Last Infusion: 07/16/25 13:01 Dose: Infused Insulin Glargine (Insulin Glargine,Hum.Rec.Anlog 100 Unit/Ml 10 Ml Vial) 20 unit SUBCUT BID [facility] Last Admin: 07/16/25 09:06 Dose: 20 unit Insulin Human Lispro (Insulin Lispro 100 Unit/Ml 3 Ml Vial) 0 unit SUBCUT QIDACHS [facility]; Protocol Last Admin: 07/16/25 11:27 Dose: 10 unit Insulin Human Lispro (Insulin Lispro 100 Unit/Ml 3 Ml Vial) 5 unit SUBCUT QIDACHS [facility] Last Admin: 07/16/25 11:27 Dose: 5 unit Magnesium Hydroxide (Milk Of Magnesia 30 Ml Oral.Susp) 30 ml PO DAILY PRN PRN Reason: Constipation Melatonin (Melatonin 3 Mg Tablet) 6 mg PO BEDTIME PRN PRN Reason: Insomnia Methadone HCl (Methadone Hcl 20 Mg/2 Ml Oral.Conc) 10 mg PO DAILY PRN PRN Reason: Opiate Withdrawal Ondansetron HCl (Ondansetron Hcl 4 Mg/2 Ml Vial) 4 mg IVPUSH Q6H PRN PRN Reason: Nausea Last Admin: 07/15/25 17:00 Dose: 4 mg Pharmacy Consult (Consult Rx Vancomycin Dosing) 1 each MISCELLANE DAILY PRN PRN Reason: Consult order Sodium Chloride (0.9 % Sodium Chloride Flush 3 Ml Syringe) 3 ml IVFLUSH QSHIFT [facility] Last Admin: 07/16/25 11:28 Dose: 3 ml Allergies Allergies Allergy/AdvReac Type Severity Reaction Status Date / Time cyclobenzaprine (From Allergy Unknown HIVES Verified 07/14/25 21:35 FLEXERIL) Assessment & Plan Assessment & Plan (1) Opioid use disorder, severe, dependence: Status: Acute Code(s): F11.20 - Opioid dependence, uncomplicated Assessment and Plan: * methadone 40mg today with 10mg PRN available if needed this evening * Methadone AM dose dependant on overall dose today * teacher public health completing referral to [facility] * Take home narcan to be ordered Total time managing care of this patient today _35___ minutes. PMFSH Social History Social History Household Members: Spouse Housing: House Do you presently have visiting nurse or other home services: No Patient Tobacco Use Status: Current everyday Tobacco user Tobacco use type: Cigarette Cigarette Packs Per Day: 0.5 Cigarettes Per Day: 10.0 Smoked in Last 30 Days: No Patient Interested in Nicotine Replacement: No Patient Given Instructions on How to Stop Smoking: No Second Hand Smoke Exposure: No Use of substances other than those prescribed or required for medical reasons: Yes Substance Use Type: Heroin Substance Use Frequency: Chronic Longstanding Last Used Substance: Unknown Currently Displaying Signs/Symptoms of Drug Intoxication Withdrawal: No Have you been hit, kicked, punched, or otherwise hurt by someone within the past year? If so, by whom?: No Do you feel safe in your current relationship?: Yes Is there a partner from a previous relationship who is making you feel unsafe now?: No Are you made to feel afraid or neglected: No Advance Directives: No Advance Directives Information Provided: No Do you have a plan to hurt others: No Plan Recently lost weight without trying: Yes How much weight loss: 34pounds or more Eating poorly because of decreased appetite: Yes Nutrition screen score: 7 Nutrition Risks: Difficulty chewing Poor oral hygiene: No service: No
[2025-07-16 14:56] VITALS: BMI 19.1
--- NOTE | 2025-07-16 15:10 | MHC.CLN ---
CONSULT DIET RX DIABETIC 2000 KCALS. ADDING ENSURE TID TO PROMOTE NUTRITIONAL INTAKE. SUPPLEMENT PROVIDES 1050 KCALS, 60 G PROTEIN. SIGNIFICANT WEIGHT LOSS X ONE YEAR -21.5%. POSSIBLE CAUSALS OF WEIGHT LOSS INCLUDE UNCONTROLLED DM, IV DRUG USE, POOR PO INTAKE. QUALIFIES MODERATELY MALNOURISHED IN THE CONTEXT OF SOCIAL/BEHAVIORAL/ENVIRONMENTAL FACTORS. FOLLOW FOR PO INTAKE AND DIET TOLERANCE. GIRLFRIEND ASKED FOR INFORMATION ABOUT DIABETIC DIET. PROVIDED BOOKLET FOR HEALTHY MEAL PLANNING. SEE CLINICAL NUTRITION ASSESSMENT 07/16/25.
[2025-07-16 15:19] VITALS: BP 104/65; PULSE 52; RESP 16; TEMP 36.1; O2SAT 99
[2025-07-16 16:18] LABS: Glucose, Whole Blood 284 mg/dL (60-115)
[2025-07-16 19:22] VITALS: BP 105/73; PULSE 59; RESP 18; TEMP 36.4; O2SAT 97
[2025-07-16 20:17] LABS: Glucose, Whole Blood 258 mg/dL (60-115)
[2025-07-17] MEDS: 0.9 % Sodium Chloride Flush 3 ML SYRINGE IVFLUSH (03:00)
[2025-07-17 03:30] VITALS: BP 133/92; PULSE 97; RESP 18; TEMP 36.5; O2SAT 97
[2025-07-17 06:29] LABS: Hematocrit 37.0 % (42.0-52.0); Hemoglobin 12.9 g/dl (14.0-18.0); Mean Corpuscular HGB Conc 34.9 g/dl (31.0-36.0); Mean Corpuscular Hemoglobin 29.7 pg (27.0-33.0); Mean Corpuscular Volume 85.3 fL (80.0-98.0); NRBC Abs Auto 0.000 X10*3/uL (0.0-0.012); NRBC Pct Auto 0.0 /100WBC (0.0-0.2); Platelet Count 302 X10*3/uL (160-400); Red Blood Count 4.34 X10*6/uL (4.60-5.80); White Blood Count 7.8 X10*3/uL (4.8-10.8)
[2025-07-17 06:55] LABS: Anion Gap 9 (12-20); Blood Urea Nitrogen 8 mg/dL (9-16); Calcium 8.1 mg/dL (8.4-10.2); Carbon Dioxide 31 mmol/L (22-29); Chloride 106 mmol/L (96-108); Creatinine Clr Calc Pharmacy 134.8; Estimated Glomerular Filt Rate > 60; Potassium 3.4 mmol/L (3.3-5.1); Sodium 143 mmol/L (135-145)
[2025-07-17 07:03] LABS: HIV Num 1 0.06 S/CO (0.00-0.99)
[2025-07-17 07:36] LABS: Glucose, Whole Blood 116 mg/dL (60-115)
[2025-07-17 08:06] VITALS: BP 150/95; PULSE 79; RESP 18; TEMP 36.7; O2SAT 98
--- NOTE | 2025-07-17 08:15 | P.DS_ITS ---
DS: Providers Provider Date of Service: 07/17/25 Date of admission: 07/15/25 04:13 Date of discharge: 07/17/25 Primary care physician: Elsy Mojica MD Consults: 07/15/25 05:44 Addiction Medicine Provider Routine Consulting Provider: Addiction Covering Reason for consultation: IVDA Consult to General Surgery Routine Consulting Provider: [facility] [place] General Surgeons Reason for consultation: cellulitis/abscess DS: Diagnosis Discharge Diagnosis (1) Opioid use disorder, severe, dependence: Status: Acute DS: Summary Hospital Course Hospital Course: from initial hpi: 50-year-old male with a past medical history of IV drug abuse, diabetes- medication noncompliance; presented to the hospital today with a chief complaint of right thigh pain redness and swelling. Patient mentioned about few days ago had small abscess of the thigh which popped; later he started to have swelling and redness which gradually increasing in size causing pain and limiting ambulation. Denies any fevers. Denies any chest pain or palpitations. Denies any nausea vomiting or diarrhea. Denies any urinary symptoms. Reports he has known history of diabetes but has not been not taking his medications as suggested. Review of all other systems is negative except mentioned above ER course: Per ER team, patient noted to have right thigh erythema, tenderness, small open wound without any discharge; CT scan showed superficial cellulitis with small abscess. Given IV vancomycin and Zosyn. hospital course: Patient was admitted for right thigh cellulitis and abscess in a patient who uses IV drugs. Was treated with IV vancomycin, cultures were negative was seen by infectious disease who recommended 10 days of doxycycline. Was seen by surgery abscesses draining adequately and did not need further intervention. For diabetes with severe hyperglycemia was given basal bolus insulin and sugars became better controlled. Patient will be prescribed insulin on discharge. For polysubstance dependence with opiate withdrawal was seen by addiction team and started on methadone. For hepatitis-C viral load is pending and should be followed up outpatient. Time Attestation Discharge Coordination Time (in mins): 34 Quality: Safe Use of Opioids Does Pt have an Active Cancer Diagnosis on the Problem List?: No Quality: Stroke Does the patient have a stroke diagnosis?: No Physical Exam 2 Vital Signs: Vital Signs: Last Vital Signs Temp 98.0 F 07/17/25 08:06 Pulse 79 07/17/25 08:06 Resp 18 07/17/25 08:06 BP 150/95 H 07/17/25 08:06 Pulse Ox 98 07/17/25 08:06 O2 Del Method Room Air 07/17/25 08:06 BMI result Body Mass Index 19.1 Const: General: comfortable, no acute distress and alert O rientation/consciousness: patient oriented x3 Resp: Effort & Inspection: normal respiratory effort Skin: Other: warm and dry right lower extremity as noted below Neuro: General: patient oriented x3 and moves all extremities Extrem: Other: right upper medial thigh - I&D site packing removed, remains open and purulent drainage expressed wound probed with q tip and repacked with 1/2in plain packing; fluctuance underlying lateral eschar with pinpoint opening at distal aspect which was therefore sharply opened and 1cm of eschar full thickness sharply debrided to allow for drainage of purulence; small amount of fluctuance underlying small 0.5 eschar at distal aspect of erythema which was sharply removed with scissors and purulent drainage expressed ; erythema appears somewhat improved from admission DS: Data Data Completed and Pending Labs on day of discharge: Laboratory Results - last 24 hr 07/16/25 07/16/25 07/16/25 09:28 11:18 16:14 WBC RBC Hgb Hct MCV MCH MCHC RDW Plt Count MPV Absolute Nucleated RBC Nucleated RBC % (auto) Sodium Potassium Chloride Carbon Dioxide Anion Gap BUN Creatinine Estim Creat Clear Calc Estimated GFR POC Glucose 404 H* 284 H Random Glucose Calcium Random Vancomycin 7.4 L HIV 1&2 Ab/P24 Ag 4thGn 07/16/25 07/17/25 07/17/25 20:14 05:36 07:29 WBC 7.8 RBC 4.34 L Hgb 12.9 L Hct 37.0 L MCV 85.3 MCH 29.7 MCHC 34.9 RDW 13.7 Plt Count 302 D MPV 9.4 Absolute Nucleated RBC 0.000 Nucleated RBC % (auto) 0.0 Sodium 143 Potassium 3.4 Chloride 106 Carbon Dioxide 31 H Anion Gap 9 L BUN 8 L Creatinine 0.54 Estim Creat Clear Calc 134.8 Estimated GFR > 60 POC Glucose 258 H 116 H Random Glucose 182 H Calcium 8.1 L Random Vancomycin HIV 1&2 Ab/P24 Ag 4thGn Nonreactive Preliminary micro results at discharge 07/14/25 22:53 Blood Culture - Preliminary Blood - Venous No growth after 48 hours. 07/14/25 22:06 Blood Culture - Preliminary Blood - Venous No growth after 48 hours. Discharge Plan Discharge Anticipated Discharge Date/Time: 07/17/25 08:11 Patient Disposition: Home, Self-Care Discharge Diagnosis: hyperglycemia, cellulitis/abscess Referrals: [facility] [Provider Group] - 07/18/25 6:00 am Referral Note: New pt. appt Sun-Sat from 6AM-11:30AM Elsy Mojica MD [Primary Care Provider, Medical] - 1 Week Discharge Medications: New doxycycline hyclate 100 mg capsule 100 mg PO BID Qty: 20 0RF (DME) FreeStyle Lite Strips Strip Qty: 100 0RF Rx Instructions: Test four times a day or as directed. (DME) blood-glucose meter [FreeStyle Lite Meter] Kit Qty: 1 0RF Rx Instructions: As Directed alcohol swabs Pads, Medicated 1 pad TOPICAL QIDACHS Qty: 100 0RF Rx Instructions: Use four times a day or as directed. insulin lispro [Humalog KwikPen Insulin] 100 unit/mL insulin pen 0 sliding scale dose SUBCUT QIDACHS Qty: 90 0RF Rx Instructions: Blood Sugar: <150 - 0 units 151-200 - 2 units 201-250 - 4 units 251-300 - 6 units 301-350 - 8 units >350 - 10 units insulin glargine [Lantus Solostar U-100 Insulin] 100 unit/mL (3 mL) insulin pen 15 unit SUBCUT DAILY 90 Days Qty: 13.5 0RF (DME) pen needle, diabetic 32 gauge x 1/4 needle Qty: 100 0RF Rx Instructions: Use four times a day or as directed. (DME) lancets [FreeStyle Lancets] 28 gauge misc Qty: 100 0RF Rx Instructions: Test four times a day or as directed. Continued gabapentin 600 mg tablet 600 mg PO BID Patient Comments: Patient only confirmed morning dose of gabapentin Trulicity 0.75 mg/0.5 mL pen injector 0.75 mg subcut WE Discharge Orders: Discharge Order (Routine); Ordered 07/17/25 Ordered By: Cheikh Talley Diet: Diabetic diet Activity on Discharge: As tolerated Stand Alone Forms: Patient Portal Discharge page Print Language: Georgian Care Plan Goals: recovery Health Concerns: ivda, cellulitis, dm Plan of Treatment: basal bolus insulin, doxy 10 days, no drug use Assessment: see above
[2025-07-17] MEDS: Insulin Glargine,Hum.rec.anlog 100 UNIT/ML 10 ML VIAL 20 UNIT SUBCUT (08:24)
[2025-07-17] MEDS: methADONE HCl 20 MG/2 ML ORAL.CONC 10 MG PO (08:25)
--- NOTE | 2025-07-17 08:48 | MHC.CM.PN ---
Patient medically cleared for dc home self care. Girlfriend at bedside, reports she can assist w/ dressing changes. Will be sent w/ supplies. Patient will schedule follow up appt w/ PCP. Patient's daughter will transport home.
--- NOTE | 2025-07-17 08:54 | P.PNGS_ITS ---
Subjective Subjective Date of Service: 07/17/25 Interval history: Pain improving. No new complaints. Physical Exam 2 Vital Signs: Vital Signs: Last Vital Signs Temp 98.0 F 07/17/25 08:06 Pulse 79 07/17/25 08:06 Resp 18 07/17/25 08:06 BP 150/95 H 07/17/25 08:06 Pulse Ox 98 07/17/25 08:06 O2 Del Method Room Air 07/17/25 08:06 BMI result Body Mass Index 19.1 Const: General: comfortable, no acute distress and alert Resp: Effort & Inspection: normal respiratory effort Extrem: Other: right lower extremity- erythema improved, packing removed from I&D site, no further purulent drainage or fluctuance, eschar of lateral aspect to which durafiber applied Objective Data Active Medications Acetaminophen (Acetaminophen 325 Mg Tablet) 650 mg PO Q6H PRN PRN Reason: Pain, Mild 1-3,fever,headache Last Admin: 07/17/25 05:00 Dose: 650 mg Documented By: ELENA Calcium Carbonate (Calcium Carbonate 750 Mg Tab.Chew) 750 mg PO Q4H PRN PRN Reason: Heartburn Dextrose (Dextrose 50 % 25 Gm/50 Ml Syringe) 25 gm IVPUSH Q15M PRN; Protocol PRN Reason: per Hypoglycemia Standing Ord. Enoxaparin Sodium (Enoxaparin Sodium 40 Mg/0.4 Ml Syringe) 40 mg SUBCUT Q24H [facility] Last Admin: 07/17/25 05:03 Dose: Not Given Documented By: ELENA Non-Admin Reason: Patient Refused Gabapentin (Gabapentin 600 Mg Tablet) 600 mg PO BID [facility] Last Admin: 07/17/25 08:27 Dose: 600 mg Documented By: BURDixie Glucose (Glucose Gel 15 Gm Gel..Gram.) 15 gm PO Q15M PRN; Protocol PRN Reason: per Hypoglycemia Standing Ord. Hydromorphone HCl (Hydromorphone Hcl 0.5 Mg/0.5 Ml Syringe) 0.5 mg IVPUSH Q3H PRN; Protocol PRN Reason: Pain, Severe (Pain Scale 7-10) Last Admin: 07/17/25 05:12 Dose: 0.5 mg Documented By: ELENA Hydroxyzine HCl (Hydroxyzine Hcl 50 Mg Tablet) 50 mg PO Q6H PRN PRN Reason: anxiety/restlessness Last Admin: 07/16/25 11:55 Dose: 50 mg Documented By: LES Vancomycin HCl 1,500 mg/ (Sodium Chloride) 500 mls @ 333.333 mls/hr IV Q12H [facility] Last Infusion: 07/17/25 00:57 Dose: Infused Documented By: ELENA Insulin Glargine (Insulin Glargine,Hum.Rec.Anlog 100 Unit/Ml 10 Ml Vial) 20 unit SUBCUT BID [facility] Last Admin: 07/17/25 08:24 Dose: 20 unit Documented By: DAYANARA Insulin Human Lispro (Insulin Lispro 100 Unit/Ml 3 Ml Vial) 0 unit SUBCUT QIDACHS [facility]; Protocol Last Admin: 07/17/25 08:27 Dose: Not Given Documented By: DAYANARA Non-Admin Reason: No Insulin Coverage Insulin Human Lispro (Insulin Lispro 100 Unit/Ml 3 Ml Vial) 5 unit SUBCUT QIDACHS [facility] Last Admin: 07/17/25 08:24 Dose: 5 unit Documented By: DAYANARA Magnesium Hydroxide (Milk Of Magnesia 30 Ml Oral.Susp) 30 ml PO DAILY PRN PRN Reason: Constipation Melatonin (Melatonin 3 Mg Tablet) 6 mg PO BEDTIME PRN PRN Reason: Insomnia Methadone HCl (Methadone Hcl 20 Mg/2 Ml Oral.Conc) 10 mg PO DAILY PRN PRN Reason: Opiate Withdrawal Last Admin: 07/17/25 08:25 Dose: 10 mg Documented By: DAYANARA Co-signed By: MARGARETTE Naloxone HCl (Naloxone Hcl Nasal Take Home 4 Mg [place]) 8 mg NOSTRILALT ONCE ONE Stop: 07/17/25 08:49 Ondansetron HCl (Ondansetron Hcl 4 Mg/2 Ml Vial) 4 mg IVPUSH Q6H PRN PRN Reason: Nausea Last Admin: 07/15/25 17:00 Dose: 4 mg Documented By: ROBIN Pharmacy Consult (Consult Rx Vancomycin Dosing) 1 each MISCELLANE DAILY PRN PRN Reason: Consult order Sodium Chloride (0.9 % Sodium Chloride Flush 3 Ml Syringe) 3 ml IVFLUSH QSHIFT [facility] Last Admin: 07/17/25 08:27 Dose: Not Given Documented By: DAYANARA Non-Admin Reason: Previously Administered Labs 07/17/25 05:36 07/17/25 05:36 Labs: Laboratory Results - last 24 hr 07/16/25 07/16/25 07/16/25 09:28 11:18 16:14 MCV MCH MCHC RDW Plt Count MPV Absolute Nucleated RBC Nucleated RBC % (auto) Anion Gap Estim Creat Clear Calc Estimated GFR POC Glucose 404 H* 284 H Random Glucose Calcium Random Vancomycin 7.4 L HIV 1&2 Ab/P24 Ag 4thGn 07/16/25 07/17/25 07/17/25 20:14 05:36 07:29 MCV 85.3 MCH 29.7 MCHC 34.9 RDW 13.7 Plt Count 302 D MPV 9.4 Absolute Nucleated RBC 0.000 Nucleated RBC % (auto) 0.0 Anion Gap 9 L Estim Creat Clear Calc 134.8 Estimated GFR > 60 POC Glucose 258 H 116 H Random Glucose 182 H Calcium 8.1 L Random Vancomycin HIV 1&2 Ab/P24 Ag 4thGn Nonreactive Microbiology Microbiology Results: Microbiology 07/14/25 22:53 Blood Culture - Preliminary Blood - Venous No growth after 48 hours. 07/14/25 22:06 Blood Culture - Preliminary Blood - Venous No growth after 48 hours. Procedures Date of Service Date of Service: 07/17/25 Progress Note: A&P Assessment and plan (1) Cellulitis and abscess of right leg: Status: Acute Plan Surrounding cellulitis improved, does have eschar to which durafiber was applied to help loosen up. He was instructed on daily local wound care with silver alginate (durafiber) to LLE wound followed by fluffs and kerlix wrap; change silver alginate every other day and outer dressing daily and as needed. He is being discharged today by medicine on oral antibiotics. He is to follow up in the office in 1 week for a wound check. Time Spent With Patient Time: Total time managing care of this patient today ____ minutes. Quality Stroke Does the patient have a stroke diagnosis?: No VTE Prior VTE?: No VTE Risk Level:: Medical - moderate - high VTE Device Contraindication: Treatment Not Indicated VTE Drug Contraindication: N/A - Med Ordered
[2025-07-17] MEDS: methADONE HCl 20 MG/2 ML ORAL.CONC 40 MG PO (09:18)
[2025-07-17 09:34] VITALS: BP 135/84; PULSE 90; RESP 18; TEMP 37; O2SAT 98
[2025-07-17] MEDS: Naloxone HCl Nasal TAKE HOME 4 MG SPRAY 8 MG NOSTRILALT (09:55)
--- NOTE | 2025-07-17 09:55 | PC.NURSE ---
[facility] discharge home, wound care education given to both patient and family member and extra supplies given. Discharge instructions reviewed with patient including follow ups. Last dose methadone note given to patient as well as Naloxone.
[2025-07-19 09:32] LABS: HCV Log PCR 6.78 Log IU/mL (NOT DETECTED); HepC Viral Load 5970000 IU/mL (NOT DETECTED)
== END 2025-07-17 09:57 | disposition home or self-care (01) | DRG 383 ==
LOC: HO.ED 07-15 02:16 → HO.EDOVER 07-15 04:22 → HO.S3 07-15 07:52
PROVIDERS: Nurse Practitioner Psychiatric/Mental Health; Physician Assistant Medical; Admitting Provider Hospitalist; Emergency Provider Emergency Medicine; PCP Family Medicine; Visit Provider Internal Medicine
DX: L02.415 Cutaneous abscess of right lower limb (principal); E11.65 Type 2 diabetes mellitus with hyperglycemia; L03.115 Cellulitis of right lower limb; F11.20 Opioid dependence, uncomplicated; F17.210 Nicotine dependence, cigarettes, uncomplicated; Z71.6 Tobacco abuse counseling; Z91.148 Patient's other noncompliance with medication regimen for other reason; Z79.85 Long-term (current) use of injectable non-insulin antidiabetic drugs; Z79.899 Other long term (current) drug therapy
CPT/HCPCS: 36415; 72193; 73701; 80048; 80053; 80076; 80202; 80307; 82010; 82947; 83605; 83735; 85025; 85027; 86704; 86706; 86709; 86803; 87040; 87340; 87389; 87522; 99285; J0131; J1171; J1650; J2405; J2543; J3374; J7120; Q9967; S9485

== ENCOUNTER → 2025-07-14 22:56 | Outpatient (BNV) | payer MEDICAID, SELFPAY | PROVIDERS: PCP Family Medicine; Visit Provider Radiology Diagnostic Radiology | DX: L03.115 Cellulitis of right lower limb (principal); L02.415 Cutaneous abscess of right lower limb; Z03.89 Encounter for observation for other suspected diseases and conditions ruled out | CPT/HCPCS: 72193; 73701 ==

== ENCOUNTER → 2025-07-15 04:13 | Outpatient (BNV) | payer MEDICAID, SELFPAY | PROVIDERS: Admitting Provider Hospitalist; Emergency Provider Emergency Medicine; PCP Family Medicine; Visit Provider Internal Medicine | DX: L03.115 Cellulitis of right lower limb (principal); L02.415 Cutaneous abscess of right lower limb; R73.9 Hyperglycemia, unspecified | CPT/HCPCS: 99223; 99499 ==

== ENCOUNTER → 2025-07-15 04:13 | Outpatient (BNV) | payer MEDICAID, SELFPAY | PROVIDERS: Admitting Provider Hospitalist; Emergency Provider Emergency Medicine; PCP Family Medicine; Visit Provider Surgery | DX: L03.115 Cellulitis of right lower limb (principal); L02.415 Cutaneous abscess of right lower limb | CPT/HCPCS: 99222 ==

== ENCOUNTER → 2025-07-15 04:13 | Outpatient (BNV) | payer OTHER, SELFPAY | PROVIDERS: Admitting Provider Hospitalist; Emergency Provider Emergency Medicine; PCP Family Medicine; Visit Provider Nurse Practitioner Psychiatric/Mental Health | DX: F11.20 Opioid dependence, uncomplicated (principal) | CPT/HCPCS: 99232 ==

== ENCOUNTER 2025-10-15 22:09 | Emergency (ER) | payer MEDICAID, SELFPAY ==
--- NOTE | ~2025-10-15 | XR_ITS ---
CLINICAL HISTORY: weakness, weight loss 2 view chest x-ray. Comparison: None provided. Findings: No consolidation, pneumothorax, or effusion. Heart size normal. Impression: 1. No radiographic evidence for an acute cardiopulmonary process. No focal pulmonary consolidation. This document has been electronically signed by: Franklin Schilling MD on 10/16/2025 02:47:06
[2025-10-15 22:13] VITALS: BP 108/55; PULSE 85; RESP 20; TEMP 36.8; O2SAT 97; BMI 18.8
[2025-10-15 22:35] LABS: MANUAL DIFF FLAG NO
[2025-10-15 22:36] LABS: Hematocrit 41.3 % (42.0-52.0); Hemoglobin 14.2 g/dl (14.0-18.0); Imm Gran Abs Auto 0.03 X10*3/uL (0.00-0.03); Imm Gran Pct Auto 0.3 % (0.0-0.4); Lymphocytes Absolute Auto 3.4 X10*3/uL (1.2-4.9); Mean Corpuscular HGB Conc 34.4 g/dl (31.0-36.0); Mean Corpuscular Hemoglobin 28.9 pg (27.0-33.0); Mean Corpuscular Volume 84.1 fL (80.0-98.0); NRBC Abs Auto 0.000 X10*3/uL (0.0-0.012); NRBC Pct Auto 0.0 /100WBC (0.0-0.2); Platelet Count 240 X10*3/uL (160-400); Red Blood Count 4.91 X10*6/uL (4.60-5.80); White Blood Count 10.1 X10*3/uL (4.8-10.8)
[2025-10-15 22:58] LABS: Alanine Aminotransferase 25 U/L (0-40); Albumin Level 3.5 g/dL (3.5-5.0); Alkaline Phosphatase 59 U/L (39-117); Anion Gap 15 (12-20); Aspartate Amino Transferase 18 U/L (5-37); Blood Urea Nitrogen 22 mg/dL (9-16); Calcium 8.7 mg/dL (8.4-10.2); Carbon Dioxide 25 mmol/L (22-29); Chloride 99 mmol/L (96-108); Creatinine Clr Calc Pharmacy 103.8; Estimated Glomerular Filt Rate > 60; Potassium 3.8 mmol/L (3.3-5.1); Sodium 135 mmol/L (135-145); Total Protein 7.2 g/dL (6.5-8.0)
[2025-10-15 23:15] LABS: Resp Syncy Virus RNA Qual PCR NEGATIVE (Negative); SARS COV2 PCR INHOUSE NEGATIVE (Negative)
--- OUTSIDE RECORDS SUMMARY | 2025-10-15 23:58 | XMS_ITS | Encounter Summary ---
Author Organization [employer] Address [address] [facility] 7t [place] [address] Care Team Providers Care Animal Doctor Name Role Phone Elsy Mojica MD Primary Care Provider [phone] Reason for Visit * Reason Onset Date Comments Med Refill 12/08/2023 Encounter Details Date Type Department Care Team (Late st Contact Info) Description 12/08/2023 Telephone [facility] [address] [place], [place] [phone] Elsy Mojica MD [address] [place], [place] [phone] Med Refill Social History Tobacco Use Types [...] EST Tresiba and metformin were sent to [facility] on 12/03/23 and test strips should still have refills. * Telephone Encounter - Jannet Bernstein - 12/08/2023 12:42 PM EST TC from pt requesting medication refill. Medications needing refill : FREESTYLE LITE test strip Tresiba FlexTouch 100 UNIT/ML injection metFORMIN XR (Glucophage-XR) 500 MG 24 hr tablet To be sent to: [facility]/pharmacy #[id number] - [place] - [address] [place] [address] documented in this encounter Plan of Treatment Not on file documented as of this encounter Visit Diagnoses Not on filedocumented in this encounter Care Teams Animal Doctor Relationship Specialty Start Date End Date Elsy Mojica MD [address] [place] [phone] PCP - General Family Medicine 02/04/24 documented as of this encounter
--- OUTSIDE RECORDS SUMMARY | 2025-10-15 23:58 | XMS_ITS | Encounter Summary ---
Author Organization [employer] Address 75 [facility] 7t [place] [address] Care Team Providers Care Net Developer Architect Name Role Phone Elsy Mojica MD Primary Care Provider [phone] Reason for Visit * Reason Comments Med Refill Encounter Details Date Type Department Care Team (Late st Contact Info) Description 01/25/2025 Refill [facility] MED & PEDS [address] [place], [place] [phone] Elsy Mojica MD [address] [place], [place] [phone] Hyperglycemia due to diabetes mellitus (CMS/HCC) Social [...] Diagnoses Diagnosis Hyperglycemia due to diabetes mellitus (HCC) documented in this encounter Care Teams Net Developer Architect Relationship Specialty Start Date End Date Elsy Mojica MD [address] [place] [address] PCP - General Family Medicine 02/04/24 documented as of this encounter
--- OUTSIDE RECORDS SUMMARY | 2025-10-15 23:58 | XMS_ITS | Encounter Summary ---
Author Organization [employer] Address [address] [facility] 7t [place] [address] Care Team Providers Care Photograph Mounter Name Role Phone Elsy Mojica MD Primary Care Provider [phone] Reason for Visit * Reason Comments Med Refill Encounter Details Date Type Department Care Team (Late st Contact Info) Description 04/24/2024 Refill [facility] MED & PEDS [address] [place], [place] [phone] Elsy Mojica MD [address] [place], [place] [phone] Social History Tobacco Use Types Packs/Day Years [...] on filedocumented in this encounter Care Teams Photograph Mounter Relationship Specialty Start Date End Date Elsy Mojica MD [address] [place] [address] PCP - General Family Medicine 02/04/24 documented as of this encounter
--- OUTSIDE RECORDS SUMMARY | 2025-10-15 23:58 | XMS_ITS | Clinical Summary ---
Author Organization [employer] Address 75 [facility] 7t [place] [address] Care Team Providers Care Sterilization Specialist Name Role Phone Elsy Mojica MD Primary Care Provider [phone] Allergies No known active allergies Medications metFORMIN XR (Glucophage-XR ) 500 MG 24 hr tabletIndicati ons:Hyperglyce sudarshan due to diabetes mellitus (HCC) TAKE 1 TABLET BY MOUTH EVERY DAY [...] miscIndication s:Hyperglycemi a due to diabetes mellitus (HCC) Use to test blood sugar BID 200 each 11 02/04/20 24 Active Alcohol Swabs 70 % padsIndication s:Hyperglycemi a due to diabetes mellitus (HCC) Use to test blood sugar BID 100 each 02/04/20 24 Active Blood Glucose Monitoring Suppl (FreeStyle [place] Lite) w/Device kitIndications :Hyperglycemia due to diabetes mellitus (HCC) Use to test blood sugarBID 1 kit 02/04/20 24 Active insulin degludec (Tresiba FlexTouch) 100 UNIT/ML injectionIndic ations:Hypergl ycemia due to diabetes mellitus (HCC) Inject 20 Units under the skin at bedtime. 15 mL 2 02/04/20 24 Active Continuous Glucose Taxonomist (FreeStyle Mayo 2 Patten) deviceIndicati ons:Hyperglyce sudarshan due to diabetes mellitus (HCC) SCAN SENSOR EVERY 8 HOURS 1 each 10/05/20 24 Active Dulaglutide 0.75 MG/0.5ML solution auto-injector Inject 0.75 mg under the skin 1 (one) time per week. 3 mL 1 12/13/19 25 Active Continuous Glucose Sensor (FreeStyle Mayo 2 Sensor) miscIndication s:Hyperglycemi a due to diabetes mellitus (HCC) Apply 1 sensor every 14 days 2 each 01/26/20 25 Active Dulaglutide (Trulicity) 0.75 MG/0.5ML solution auto-injector Inject 0.75 mg under the skin 1 (one) time per week. INJECT 0.75 MG UNDER THE SKIN 1 (ONE) TIME PER WEEK. 2 mL 2 02/08/20 25 Active hydrOXYzine pamoate (Vistaril) 25 MG capsule TAKE 1 CAPSULE BY MOUTH EVERY 8 HOURS IF NEEDED FOR ITCHING OR ANXIETY. 90 capsule 1 03/07/20 25 Active glucose blood (FREESTYLE LITE) test stripIndicatio ns:Hyperglycem ia due to diabetes mellitus ([facility]) USE TO TEST BLOOD SUGAR TWICE A DAY 100 strip 11 07/06/20 25 Active gabapentin (Neurontin) 600 MG tablet TAKE 1 TABLET BY MOUTH TWICE A DAY 60 tablet 2 09/11/20 25 Active Insulin Glargine Solostar 100 UNIT/ML solution pen-injectorIn dications:Hype rglycemia due to diabetes mellitus (HCC) Inject 18 Units under the skin at bedtime. 3 mL 2 09/28/20 25 026 Active Insulin Glargine Solostar 100 UNIT/ML solution pen-injector Inject 18 Units under the skin at bedtime. 025 Discontinued(Re order (will not trigger notification to Pharmacy)) Active Problems Problem Noted Date Diagnosed Date Routine adult health maintenance 01/28/2023 Hyperglycemia due to diabetes mellitus 3 Assessment & Plan (02/04/2024 3:45 PM EDT): Continue on current medications, and begin Trulicity. Discussed monitoring daily blood sugar levels. Ordered lab work for further investigation. F/u in two weeks on 02/24/2024. Encounters Date Type Department Care Team Description 10/04/[address] [phone] Elsy Mojica MD Med Refill 10/03/[address] [address] Elsy Mojica MD Prior Authorization 09/28/[address] [address] Elsy Mojica MD Med Refill 09/10/[address] [address] Elsy Mojica MD 07/18/2025 Patient Outreach [address] [phone] Elsy Mojica MD Transition Of Care (Tcm) (HDF unscheduled) 07/16/2025 Results Follow-Up [facility] CHC MED & PEDS [address] [place], [place] [phone] Elsy Mojica MD Glucose, Whole Blood, Glucose, Whole Blood, Lactic Acid, Lactic Acid from Last 3 Months Family History Medical [...] Screening 02/03/2025 02/04/2024 COVID-19 Vaccine (1 - 2024-2 6 season) 2025 Influenza Vaccine (#1) 2025 Zoster [...] this topic Meningococcal Vaccine Aged Out No egmini rocio eligible based on patient's age to complete this topic RSV under 20 months Aged Out No longe r eligible based on patient's age to complete this topic Rotavirus Vaccines Aged Out No longer eligible based on patient's age to complete this topic Procedures Procedure Name Priority Date/Time Associated Diagnosis Comments POCT GLYCATED HEMOGLOBIN, TOTAL Routine 02/04/2024 2:13 PM EDT Hyperglycemia due to diabetes mellitus ([facility]) from Last 3 Months or Most Recently Relevant to Health Maintenance Results * (ABNORMAL) POCT HGB A1C (02/04/2024 2:13 PM EDT) Hemoglobin A1C 11.9(A) 4.0 - 6.0 % QC Media Lot # [id number] Lot# Expiration Date Blood 02/04/2024 2:13 PM EDT Elsy Mojica MD POINT OF CARE TEST ENTER/EDIT ORDERABLES Final Result from Last 3 Months or Most Recently Relevant to Health Maintenance Insurance [facility] C[facility] FULL Care Teams Sterilization Specialist Relationship Specialty Start Date End Date Elsy Mojica MD [address] [place] [phone] PCP - General Family Medicine 02/04/24
--- OUTSIDE RECORDS SUMMARY | 2025-10-15 23:58 | XMS_ITS | Encounter Summary ---
Author Organization [employer] Address 75 [facility] 7t [place] [address] Care Team Providers Care Blister Rust Eradicator Name Role Phone Elsy Mojica MD Primary Care Provider [phone] Encounter Details Date Type Department Care Team (Late st Contact Info) Description 12/11/2024 Orders Only [facility] [address] [place] [address] Lisa Redmond MD [address] [place], [place] [phone] Social History Tobacco Use Types Packs/Day Years [...] Lactic Acid 4.4(HH) 0.5 - 2.0 mmol/L [facility] Comment:Critical value for t est(s): LACTA Results called to isaiah back by: NIKIA Person calling: VYASRID Date: [id number] 07/14/2025 10:0 6 PM EDT 07/14/2025 10:13 PM EDT us Generic External Data Provider LAB BLOOD ORDERAB LES Final Result [facility] [address] [place] [address] [phone] * (ABNORMAL) CBC auto differential (07/14/2025 10:06 PM EDT) White Blood Count 6.2 4.8 - 10.8 X10*3/uL [facility] Red Blood Count 4.59(L) 4.60 - 5.80 X10*6/uL [facility] Hemoglobin 13.9(L) 14.0 - 18.0 g/dl [facility] Hematocrit 39.8(L) 42.0 - 52.0 % [facility] Mean Corpuscular Volume 86.7 80.0 - 98.0 fL [facility] Mean Corpuscular Hemoglobin 30.3 27.0 - 33.0 pg [facility] Mean Corpuscular HGB Conc 34.9 31.0 - 36.0 g/dl [facility] Red Cell Distribution Width 13.5 11.0 - 16.0 % [facility] Platelet Count 240 160 - 400 X10*3/uL [facility] Mean Platelet Volume 10.0 9.4 - 12.4 fL [facility] Neutrophils Percent Auto 80.3(H) 45 - 73 % [facility] Imm Gran Pct Auto 0.3 0.0 - 0.4 % [facility] Lymphocytes Percent Auto 13.3(L) 20 - 40 % [facility] Monocytes Percent Auto 5.3 2 - 11 % [facility] Eosinophils Percent Auto 0.2 0 - 4 % [facility] Basophils Percent Auto 0.6 0 - 2 % [facility] NRBC Pct Auto 0.0 0.0 - 0.2 /100WBC [facility] Neutrophils Absolute Auto 5.0 2.0 - 8.3 x10*3/uL [facility] Imm Gran Abs Auto 0.02 0.00 - 0.03 X10*3/uL [facility] Lymphocytes Absolute Auto 0.8(L) 1.2 - 4.9 X10*3/uL [facility] Monocytes Absolute Auto 0.3 0.1 - 1.2 X10*3/uL [facility] Eosinophils Absolute Auto 0.0 0.0 - 0.4 X10*3/uL [facility] Basophils Absolute Auto 0.0 0.0 - 0.2 X10*3/uL [facility] NRBC Abs Auto 0.000 0.0 - 0.012 X10*3/uL [facility] 07/14/2025 10:0 6 PM EDT 07/14/2025 10:26 PM EDT us Generic External Data Provider LAB BLOOD ORDERAB LES Final Result Performing Organization Address City/[facility]/ZIP Co de Phone Number [facility] [address] [place] [address] [phone] * (ABNORMAL) Glucose, Whole Blood (07/14/2025 9:37 PM EDT) Glucose, Whole Blood >600() 60 - 115 mg/dL [facility] Comment:METER #: [id number] 07/14/2025 9:37 PM EDT 07/14/2025 10:56 PM EDT us Generic External Data Provider LAB BLOOD ORDERAB LES Final Result Performing Organization Address [facility]/ZIP Co de Phone Number [facility] [address] [place] [address] [phone] documented in this encounter Visit Diagnoses Not on filedocumented in this encounter Care Teams Blister Rust Eradicator Relationship Specialty Start Date End Date Elsy Mojica MD [address] [place] [address] PCP - General Family Medicine 02/04/24 documented as of this encounter
--- OUTSIDE RECORDS SUMMARY | 2025-10-15 23:58 | XMS_ITS | Encounter Summary ---
Author Organization [employer] Address [address] [facility] 7t [place] [address] Care Team Providers Care Red Hat Linux Engineer Name Role Phone Elsy Mojica MD Primary Care Provider [phone] Reason for Visit * Reason Comments Med Refill Encounter Details Date Type Department Care Team ([facility] st Contact Info) Description 10/04/2024 Refill [facility] CH[facility] MED & PEDS [address] [place], [place] [phone] Elsy Mojica MD [address] [place], [place] [phone] Hyperglycemia due to diabetes mellitus (CMS/HCC) Social [...] (HCC) documented in this encounter Care Teams Red Hat Linux Engineer Relationship Specialty Start Date End Date Elsy Mojica MD [address] [place] [address] PCP - General Family Medicine 02/04/24 documented as of this encounter
--- OUTSIDE RECORDS SUMMARY | 2025-10-15 23:58 | XMS_ITS | Encounter Summary ---
Author Organization [employer] Address [address] [facility] 7t [place] [address] Care Team Providers Care Mitering Machine Operator Name Role Phone Elsy Mojica MD Primary Care Provider [phone] Reason for Visit * Reason Comments Med Change Request Encounter Details Date Type Department Care Team ([facility] st Contact Info) Description 02/04/2024 Refill [facility] CH[facility] MED & PEDS [address] [place], [place] [phone] Elsy Mojica MD [address] [place], [place] [phone] Hyperglycemia due to diabetes mellitus (CMS/HCC) Social [...] (HCC) documented in this encounter Care Teams Mitering Machine Operator Relationship Specialty Start Date End Date Elsy Mojica MD [address] [place] [address] PCP - General Family Medicine 02/04/24 documented as of this encounter
--- OUTSIDE RECORDS SUMMARY | 2025-10-15 23:58 | XMS_ITS | Encounter Summary ---
Author Organization [employer] Address [address] [facility] 7t [place] [address] Care Team Providers Care Instructor Of Spanish Name Role Phone Elsy Mojica MD Primary Care Provider [phone] Reason for Visit * Reason Onset Date Comments PA 10/31/2024 Encounter Details Date Type Department Care Team ([facility] st Contact Info) Description 10/31/2024 Telephone [facility] MED & PEDS [address] [place], [place] [phone] Elsy Mojica MD [address] [place], [place] [phone] PA Social History Tobacco Use Types Packs/Day [...] on filedocumented in this encounter Care Teams Instructor Of Spanish Relationship Specialty Start Date End Date Elsy Mojica MD [address] [place] [phone] PCP - General Family Medicine 02/04/24 documented as of this encounter
--- OUTSIDE RECORDS SUMMARY | 2025-10-15 23:58 | XMS_ITS | Encounter Summary ---
Author Organization [employer] Address [address] [facility] 7t [place] [address] Care Team Providers Care Accounts Payable Technician Name Role Phone Elsy Mojica MD Primary Care Provider [phone] Reason for Visit * Reason Comments Med Refill Encounter Details Date Type Department Care Team (Late st Contact Info) Description 12/26/2024 Refill [facility] MED[facility]INE [address] [place] [address] Elsy Mojica MD [address] [place], [place] [phone] Social History Tobacco Use Types Packs/Day Years [...] on filedocumented in this encounter Care Teams Accounts Payable Technician Relationship Specialty Start Date End Date Elsy Mojica MD [address] [place] [address] PCP - General Family Medicine 02/04/24 documented as of this encounter
[2025-10-16 00:45] LABS: OBS Int Ctl Valid YES; OBS1 NEGATIVE (NEGATIVE)
--- NOTE | 2025-10-16 00:50 | ED_ITS ---
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 The patient presents with his long-term girlfriend. He is concerned that his sugars are not well maintained pain He reports taking Lantus in his not on any short-acting insulin. He is prescribed metformin but does not take it because it did not like the side effects. He is not on any GLP 1 inhibitors but reports a 70 lb weight loss in the last 6 months. He denies any cough, shortness of breath, abdominal pain, nausea vomiting. Denies any fevers or chills. He does use IV heroin actively. He is interested in detox in getting started on methadone. No other complaints or concerns at this time Related Data Home Medications ?Medication ?Instructions ?Recorded ?Confirmed dulaglutide 0.75 mg/0.5 mL 0.75 mg subcut WE 07/15/25 07/15/25 subcutaneous pen injector ([facility]) gabapentin 600 mg tablet 600 mg PO BID 07/15/2507/15 Previous Rx's ?Medication ?Instructions ?Recorded alcohol swabs 1 pad topical QIDACHS #100 e a 07/17/25 blood sugar diagnostic (FreeStyle #100 ea 07/17/25 Lite Strips) blood-glucose meter (FreeStyle #1 ea 07/17/25 Lite Meter kit) doxycycline hyclate 100 mg capsule 100 mg PO BID #20 c aps 07/17/25 insulin glargine 100 unit/mL (3 15 unit (0.15 mL) subc ut DAILY 3 07/17/25 mL) subcutaneous pen (Lantus months #13.5 mL Solostar U-100 Insulin) insulin lispro 100 unit/mL 0 sliding scale dose subcut 07/17/25 subcutaneous pen (Humalog KwikPen QIDACHS #90 mL (U-100) Insulin) lancets 28 gauge (FreeStyle #100 ea 07/17/25 Lancets) pen needle, diabetic 32 gauge x #100 ea 07/17/25 1/4 Allergies Allergy/AdvReac Type Severity Reaction Status Date / Time cyclobenzaprine (From Allergy Unknown HIVES Verified 10/15/25 22:15 FLEXERIL) Review of Systems 2 Constitutional: Constitutional: Denies body ache(s), Denies chills, Denies fever(s), Denies headache(s), Reports poor appetite and Reports weight loss Eyes: Eyes: Denies blurry vision ENT: Denies vertigo, Denies dizziness and Denies headache(s) Cardiovascular: Cardiovascular: Denies chest pain and Denies dyspnea on exertion Respiratory: Respiratory: Denies cough and Denies dyspnea on exertion Gastrointestinal: Gastrointestinal: Denies abdominal pain, Denies nausea and Denies vomiting Musculoskeletal: Musculoskeletal: Denies back pain Integumentary/Breasts: Skin/Breast: Denies rash Neurologic: Denies vertigo, Denies dizziness and Denies headache(s) Psychiatric: Psychiatric: Reports anxiety, Denies homicidal ideation and Denies suicidal ideation [facility] Social History Social History Household Members: Spouse Housing: House Do you presently have visiting nurse or other home services: No Patient Tobacco Use Status: Current everyday Tobacco user Tobacco use type: Cigarette Cigarette Packs Per Day: 0.5 Cigarettes Per Day: 10.0 Second Hand Smoke Exposure: No Substance Use Type: Heroin Advance Directives: No Advance Directives Information Provided: Yes service: No Physical Exam ED Vital Signs: Vital Signs - 24 hr 10/15/25 22:13 10/16/25 07:29 Temperature 98.2 F 98.4 F Pulse Rate 85 69 Respiratory Rate 20 14 Blood Pressure 108/55 L 95/52 L Pulse Oximetry 97 96 Oxygen Delivery Method Room Air Room Air BMI result Body Mass Index 18.8 Const General: comfortable, no acute distress, alert and awake Nutritional Appearance: thin and underweight Orientation/consciousness: patient oriented x3 HENMT Head: Yes normocephalic and Yes atraumatic Eyes Eyelids: Yes eyelids normal Conjunctivae: conjunctivae normal Sclerae: sclerae normal Corneas: corneas normal Pupils: Equal, round and reactive pupils present EOM: EOMs intact bilaterally Neck Neck: Yes full ROM Resp Effort & Inspection: normal respiratory effort, able to speak in complete sentences, no audible wheezes and not labored Auscultation: clear to auscultation bilaterally Cardio Rate: regular rate Rhythm: regular rhythm GI Inspection: No distended Palpation (GI): Soft to palpation, not firm, nontender, no guarding and not rigid Rectal Exam - Male: Yes heme negative stool Skin General skin exam: elasticity normal Neuro General: patient oriented x3 Cranial nerves: Yes CN's II-XII intact bilaterally, Yes Equal, round and reactive pupils present and Yes Bilaterally intact EOM present Cognition (Neuro): normal cognition Extrem Other: Moving all extremities well without any obvious deformities Medications Administered Discontinued Medications Generic Name Dose Route Start Last Admin Trade Name Shelby PRN Reason Stop Dose Admin Lactated Ringer's 1,000 mls @ 999 mls/hr 10/16/25 00:30 10/16/25 07:24 Lr IV 10/16/25 02:30 999 mls/hr .Q1H1M [facility] Administration Medical Decision Making Medical Decision Making MDM Narrative: 50-year-old male presents for evaluation of multiple complaints including hyperglycemia as well as significant weight loss that has unintentional. His vital signs are stable though he is slightly hypotensive to 108/55. He is afebrile. He is not tachycardic. He has no cough or shortness of breath, no abdominal pain, nausea vomiting but he does endorse decreased appetite. He is noncompliant with his metformin which is likely contributing to his elevated blood sugars. There was no evidence of DKA though he has hyperglycemia. We will address this with IV fluids and insulin. A guaiac was performed given his significant weight loss which was negative. I do not feel it is necessary for emergent imaging of the abdomen pelvis at this time but we will get a screening chest x-ray to evaluate for concerning masses. The patient is interested in detox and we would like to speak with the recovery team once medically cleared Patient told his nurse that he no longer wants to see the care team for detox. Does not longer want to talk to the care team. Patient is not SI or HI. Patient's glucose is at this time, 08:20, 430. I discussed with the patient that his glucose is still elevated. Patient states that he respectfully declines any further treatment, states that he has a family emergency and needs to go help his family out. Per patient's request, he has been discharged Differential Diagnosis Differential Diagnoses: The differential diagnosis associated with the presentation includes Uncontrolled diabetes Medication noncompliance Polysubstance abuse Lung cancer Colon cancer Admission/Observation Consideration of admission/observation: Escalation of care including admission/observation considered Lab Data MDM Lab Attestation statement: I reviewed the patient's lab results. No leukocytosis or significant anemia. Normal platelet count. No electrolyte abnormalities warranting dimension. The patient's random glucose is elevated to 417. His anion gap is normal at 15 in his CO2 is 25, this is not indicative of acidosis. His albumin in his normal at 3.5 10/15/25 22:30 10/15/25 22:30 Labs: Lab Results 10/15/25 10/16/25 10/16/25 Range/Units 22:30 00:42 01:18 WBC 10.1 (4.8-10.8) X10*3/uL RBC 4.91 (4.60-5.80) X10*6/uL Hgb 14.2 (14.0-18.0) g/dl Hct 41.3 L (42.0-52.0) % MCV 84.1 (80.0-98.0) fL MCH 28.9 (27.0-33.0) pg MCHC 34.4 (31.0-36.0) g/dl RDW 12.9 (11.0-16.0) % Plt Count 240 (160-400) X10*3/uL MPV 10.1 (9.4-12.4) fL Immature Gran % (Auto) 0.3 (0.0-0.4) % Neut % (Auto) 58.8 (45-73) % Lymph % (Auto) 33.5 (20-40) % [place] % (Auto) 6.0 (2-11) % Eos % (Auto) 1.0 (0-4) % Baso % (Auto) 0.4 (0-2) % Lymph # (Auto) 3.4 (1.2-4.9) X10*3/uL [place] # (Auto) 0.6 (0.1-1.2) X10*3/uL Eos # (Auto) 0.1 (0.0-0.4) X10*3/uL Baso # (Auto) 0.0 (0.0-0.2) X10*3/uL Abs Immat Gran (auto) 0.03 (0.00-0.03) X10*3/uL Absolute Neuts (auto) 5.9 (2.0-8.3) x10*3/uL Absolute Nucleated RBC 0.000 (0.0-0.012) X10*3/uL Nucleated RBC % (auto) 0.0 (0.0-0.2) /100WBC Sodium 135 (135-145) mmol/L Potassium 3.8 (3.3-5.1) mmol/L Chloride 99 (96-108) mmol/L Carbon Dioxide 25 (22-29) mmol/L Anion Gap 15 (12-20) BUN 22 H (9-16) mg/dL Creatinine 0.67 (0.5-1.4) mg/dL Estim Creat Clear Calc 103.8 Estimated GFR > 60 POC Glucose 425 H* (60-115) mg/dL Random Glucose 417 H* (60-115) mg/dL Calcium 8.7 D (8.4-10.2) mg/dL Total Bilirubin 0.1 (0.0-1.0) mg/dL AST 18 (5-37) U/L ALT 25 (0-40) U/L Alkaline Phosphatase 59 (39-117) U/L Total Protein 7.2 (6.5-8.0) g/dL Albumin 3.5 (3.5-5.0) g/dL Urine Color Urine Appearance Urine pH (5.0-9.0) Ur Specific [place] (1.005-1.025) Urine Protein (Neg-Trace) mg/dL Urine Glucose (UA) (Negative) mg/dL Urine Ketones (Negative) mg/dL Urine Blood (Negative) Urine Nitrite (Negative) Ur Leukocyte Esterase (Negative) Urine RBC (0-2) /HPF Urine WBC (0-5) /HPF Ur Squamous Epith Cells (0-2) /HPF Urine Bacteria (None Seen) Hyaline Casts (0-2) /LPF Stool Occult Blood NEGATIVE (NEGATIVE) Urine Opiates Screen (Not Detect) Ur Buprenorphine Scrn (Not Detect) ng/mL Ur Oxycodone Screen (Not Detect) ng/mL Urine Methadone Screen (Not Detect) ng/mL Urine Fentanyl Screen (Not Detect) Ur Barbiturates Screen (Not Detect) Ur Phencyclidine Scrn (Not Detect) Ur Amphetamines Screen (Not Detect) U Benzodiazepines Scrn (Not Detect) Urine Cocaine Screen (Not Detect) U Marijuana (THC) Screen (Not Detect) Ethyl Alcohol < 10 mg/dL Influenza Type A (PCR) NEGATIVE (Negative) Influenza Type B (PCR) NEGATIVE (Negative) RSV RNA Qual (PCR) NEGATIVE (Negative) SARS-CoV-2 RNA (RT-PCR) NEGATIVE (Negative) 10/16/25 10/16/25 10/16/25 Range/Units 02:43 02:49 07:36 WBC (4.8-10.8) X10*3/uL RBC (4.60-5.80) X10*6/uL Hgb (14.0-18.0) g/dl Hct (42.0-52.0) % MCV (80.0-98.0) fL MCH (27.0-33.0) pg MCHC (31.0-36.0) g/dl RDW (11.0-16.0) % Plt Count (160-400) X10*3/uL MPV (9.4-12.4) fL Immature Gran % (Auto) (0.0-0.4) % Neut % (Auto) (45-73) % Lymph % (Auto) (20-40) % [place] % (Auto) (2-11) % Eos % (Auto) (0-4) % Baso % (Auto) (0-2) % Lymph # (Auto) (1.2-4.9) X10*3/uL [place] # (Auto) (0.1-1.2) X10*3/uL Eos # (Auto) (0.0-0.4) X10*3/uL Baso # (Auto) (0.0-0.2) X10*3/uL Abs Immat Gran (auto) (0.00-0.03) X10*3/uL Absolute Neuts (auto) (2.0-8.3) x10*3/uL Absolute Nucleated RBC (0.0-0.012) X10*3/uL Nucleated RBC % (auto) (0.0-0.2) /100WBC Sodium (135-145) mmol/L Potassium (3.3-5.1) mmol/L Chloride (96-108) mmol/L Carbon Dioxide (22-29) mmol/L Anion Gap (12-20) BUN (9-16) mg/dL Creatinine (0.5-1.4) mg/dL Estim Creat Clear Calc Estimated GFR POC Glucose 375 H* (60-115) mg/dL Random Glucose (60-115) mg/dL Calcium (8.4-10.2) mg/dL Total Bilirubin (0.0-1.0) mg/dL AST (5-37) U/L ALT (0-40) U/L Alkaline Phosphatase (39-117) U/L Total Protein (6.5-8.0) g/dL Albumin (3.5-5.0) g/dL Urine Color Yellow Urine Appearance Clear Urine pH 6.0 (5.0-9.0) Ur Specific [place] >= 1.030 H (1.005-1.025) Urine Protein Negative (Neg-Trace) mg/dL Urine Glucose (UA) >=1000 H (Negative) mg/dL Urine Ketones Negative (Negative) mg/dL Urine Blood Negative (Negative) Urine Nitrite Negative (Negative) Ur Leukocyte Esterase Negative (Negative) Urine RBC 0-2 (0-2) /HPF Urine WBC 0-5 (0-5) /HPF Ur Squamous Epith Cells 0-2 (0-2) /HPF Urine Bacteria None Seen (None Seen) Hyaline Casts 0-2 (0-2) /LPF Stool Occult Blood (NEGATIVE) Urine Opiates Screen Not Detected Not Detected (Not Detect) Ur Buprenorphine Scrn Not Detected Not Detected (Not Detect) ng/mL Ur Oxycodone Screen Not Detected Not Detected (Not Detect) ng/mL Urine Methadone Screen Not Detected Not Detected (Not Detect) ng/mL Urine Fentanyl Screen POSITIVE H POSITIVE H (Not Detect) Ur Barbiturates Screen Not Detected Not Detected (Not Detect) Ur Phencyclidine Scrn Not Detected Not Detected (Not Detect) Ur Amphetamines Screen Not Detected Not Detected (Not Detect) U Benzodiazepines Scrn POSITIVE H POSITIVE H (Not Detect) Urine Cocaine Screen Not Detected Not Detected (Not Detect) U Marijuana (THC) Screen POSITIVE H POSITIVE H (Not Detect) Ethyl Alcohol mg/dL Influenza Type A (PCR) (Negative) Influenza Type B (PCR) (Negative) RSV RNA Qual (PCR) (Negative) SARS-CoV-2 RNA (RT-PCR) (Negative) 10/16/25 Range/Units 08:18 WBC (4.8-10.8) X10*3/uL RBC (4.60-5.80) X10*6/uL Hgb (14.0-18.0) g/dl Hct (42.0-52.0) % MCV (80.0-98.0) fL MCH (27.0-33.0) pg MCHC (31.0-36.0) g/dl RDW (11.0-16.0) % Plt Count (160-400) X10*3/uL MPV (9.4-12.4) fL Immature Gran % (Auto) (0.0-0.4) % Neut % (Auto) (45-73) % Lymph % (Auto) (20-40) % [place] % (Auto) (2-11) % Eos % (Auto) (0-4) % Baso % (Auto) (0-2) % Lymph # (Auto) (1.2-4.9) X10*3/uL [place] # (Auto) (0.1-1.2) X10*3/uL Eos # (Auto) (0.0-0.4) X10*3/uL Baso # (Auto) (0.0-0.2) X10*3/uL Abs Immat Gran (auto) (0.00-0.03) X10*3/uL Absolute Neuts (auto) (2.0-8.3) x10*3/uL Absolute Nucleated RBC (0.0-0.012) X10*3/uL Nucleated RBC % (auto) (0.0-0.2) /100WBC Sodium (135-145) mmol/L Potassium (3.3-5.1) mmol/L Chloride (96-108) mmol/L Carbon Dioxide (22-29) mmol/L Anion Gap (12-20) BUN (9-16) mg/dL Creatinine (0.5-1.4) mg/dL Estim Creat Clear Calc Estimated GFR POC Glucose 430 H* (60-115) mg/dL Random Glucose (60-115) mg/dL Calcium (8.4-10.2) mg/dL Total Bilirubin (0.0-1.0) mg/dL AST (5-37) U/L ALT (0-40) U/L Alkaline Phosphatase (39-117) U/L Total Protein (6.5-8.0) g/dL Albumin (3.5-5.0) g/dL Urine Color Urine Appearance Urine pH (5.0-9.0) Ur Specific [place] (1.005-1.025) Urine Protein (Neg-Trace) mg/dL Urine Glucose (UA) (Negative) mg/dL Urine Ketones (Negative) mg/dL Urine Blood (Negative) Urine Nitrite (Negative) Ur Leukocyte Esterase (Negative) Urine RBC (0-2) /HPF Urine WBC (0-5) /HPF Ur Squamous Epith Cells (0-2) /HPF Urine Bacteria (None Seen) Hyaline Casts (0-2) /LPF Stool Occult Blood (NEGATIVE) Urine Opiates Screen (Not Detect) Ur Buprenorphine Scrn (Not Detect) ng/mL Ur Oxycodone Screen (Not Detect) ng/mL Urine Methadone Screen (Not Detect) ng/mL Urine Fentanyl Screen (Not Detect) Ur Barbiturates Screen (Not Detect) Ur Phencyclidine Scrn (Not Detect) Ur Amphetamines Screen (Not Detect) U Benzodiazepines Scrn (Not Detect) Urine Cocaine Screen (Not Detect) U Marijuana (THC) Screen (Not Detect) Ethyl Alcohol mg/dL Influenza Type A (PCR) (Negative) Influenza Type B (PCR) (Negative) RSV RNA Qual (PCR) (Negative) SARS-CoV-2 RNA (RT-PCR) (Negative) Radiology Impression Discussion of test interpretation with radiology: I have reviewed the radiologist's reading. Radiologist Impression: Findings: No consolidation, pneumothorax, or effusion. Heart size normal. Impression: 1. No radiographic evidence for an acute cardiopulmonary process. No focal pulmonary consolidation. This document has been electronically signed by: Franklin Schilling MD on 10/16/2025 02:47:06 Discharge Plan Discharge Clinical Impression: Hyperglycemia, Opioid use disorder, severe, dependence Patient Disposition: Home, Self-Care Instructions: Polysubstance Use Disorder (ED), Diabetic Hyperglycemia (ED), Narcotic Use Disorder (ED) Additional Instructions: Opiate use disorder You were seen in our Emergency Department today for treatment of opiate use disorder. You may have been dosed with medication for opiate use disorder (MOUD) in the form of suboxone or methadone. You may experience feeling some withdrawal symptoms and this is normal. The? dose in the Emergency Department is a starting dose and meant to be titrated up once you follow up with a clinic. Please do not feel discouraged, it is a process. The nurse has reviewed with you where to follow up and what information to bring with you, to continue treatment. You also may have been given naloxone (narcan) to take home with you. This medication is used to potentially treat opiate overdose. If you decide you want to stop or cut down on how much you?re using, you can call or walk into our outpatient Addiction Treatment office: [facility] [[email or web address]] (M-F 9am-5p) [address], [address] [phone] You may have been provided with safer injection?items, please take time to take care of YOU and your health. Use new supplies whenever possible to lessen the chances of infections and other illnesses.? ?If you need more supplies, please go [facility],? [address] [place] [address] OR you can call or text to coordinate delivery of safer supplies. You were also provided a list of several treatment providers in the area.? If you experience any worsening symptoms you cannot control please return to the ED or call 911. Please follow up at your next appointment. Things to look out for are fevers, chest pain, shortness of breath, severe pain, dizziness, fainting or any other concerns. Prescriptions: No Action gabapentin 600 mg tablet 600 mg PO BID Patient Comments: Patient only confirmed morning dose of gabapentin Trulicity 0.75 mg/0.5 mL pen injector 0.75 mg subcut WE doxycycline hyclate 100 mg capsule 100 mg PO BID Qty: 20 0RF (DME) FreeStyle Lite Strips Strip Qty: 100 0RF Rx Instructions: Test four times a day or as directed. (DME) blood-glucose meter [FreeStyle Lite Meter] Kit Qty: 1 0RF Rx Instructions: As Directed alcohol swabs Pads, Medicated 1 pad TOPICAL QIDACHS Qty: 100 0RF Rx Instructions: Use four times a day or as directed. insulin lispro [Humalog KwikPen Insulin] 100 unit/mL insulin pen 0 sliding scale dose SUBCUT QIDACHS Qty: 90 0RF Rx Instructions: Blood Sugar: <150 - 0 units 151-200 - 2 units 201-250 - 4 units 251-300 - 6 units 301-350 - 8 units >350 - 10 units insulin glargine [Lantus Solostar U-100 Insulin] 100 unit/mL (3 mL) insulin pen 15 unit SUBCUT DAILY 90 Days Qty: 13.5 0RF (DME) pen needle, diabetic 32 gauge x 1/4 needle Qty: 100 0RF Rx Instructions: Use four times a day or as directed. (DME) lancets [FreeStyle Lancets] 28 gauge misc Qty: 100 0RF Rx Instructions: Test four times a day or as directed. Discharge Date/Time: 10/16/25 08:30 Print Language: Algerian
[2025-10-16 06:55] LABS: Glucose, Whole Blood 425 mg/dL (60-115)
[2025-10-16 06:55] LABS: Glucose, Whole Blood 375 mg/dL (60-115)
[2025-10-16] MEDS: Lactated Ringers 1,000 ML 999 ML IV (07:24)
[2025-10-16 07:29] VITALS: BP 95/52; PULSE 69; RESP 14; TEMP 36.9; O2SAT 96
[2025-10-16 08:09] LABS: Cannabinoid Screen Urine POSITIVE (Not Detect)
[2025-10-16 08:22] LABS: Appearance Urine Clear; Glucose Urine UA >=1000 mg/dL (Negative); PH 6.0 (5.0-9.0); Specific Gravity - Urine >= 1.030 (1.005-1.025); UMIC TRIGGER UA YES
[2025-10-16 08:43] LABS: Glucose, Whole Blood 430 mg/dL (60-115)
[2025-10-16 11:42] LABS: Cannabinoid Screen Urine POSITIVE (Not Detect)
== END 2025-10-16 08:30 | disposition home or self-care (01) ==
PROVIDERS: Physician Assistant; Emergency Provider Emergency Medicine; PCP Family Medicine
DX: F11.20 Opioid dependence, uncomplicated (principal); R11.2 Nausea with vomiting, unspecified; E11.65 Type 2 diabetes mellitus with hyperglycemia; F17.210 Nicotine dependence, cigarettes, uncomplicated; Z79.4 Long term (current) use of insulin; Z79.899 Other long term (current) drug therapy; Z51.81 Encounter for therapeutic drug level monitoring; Z03.818 Encounter for observation for suspected exposure to other biological agents ruled out
CPT/HCPCS: 71046; 80053; 80307; 81001; 81003; 82272; 82947; 85025; 87637; 96365; 96375; 99283; 99284; J7120; S9485

== ENCOUNTER → 2025-10-16 00:49 | Outpatient (BNV) | payer MEDICAID, SELFPAY | PROVIDERS: Emergency Provider Emergency Medicine; PCP Family Medicine; Visit Provider Radiology Diagnostic Radiology | DX: R53.1 Weakness (principal); R63.4 Abnormal weight loss | CPT/HCPCS: 71046 ==